=== PATIENT | male | born 1965 | race Caucasian/White ===

== ENCOUNTER → 2019-03-03 08:34 | Outpatient (BNVA) | payer SELFPAY | PROVIDERS: Family Provider Nurse Practitioner Family; PCP Nurse Practitioner Family; Visit Provider Orthopaedic Surgery | DX: Z96.612 Presence of left artificial shoulder joint (principal) | CPT/HCPCS: 73030 ==

== ENCOUNTER → 2021-01-16 08:25 | Outpatient (BNVA) | payer BC, SELFPAY | PROVIDERS: Family Provider Nurse Practitioner Family; PCP Nurse Practitioner Family; Visit Provider Orthopaedic Surgery | DX: M17.12 Unilateral primary osteoarthritis, left knee (principal); M11.262 Other chondrocalcinosis, left knee | CPT/HCPCS: 73560; 73565 ==

== ENCOUNTER → 2021-06-04 08:18 | Outpatient (BNVA) | payer BC, MEDICAID, SELFPAY | PROVIDERS: Family Provider Nurse Practitioner Family; PCP Nurse Practitioner Family; Visit Provider Orthopaedic Surgery | DX: M17.0 Bilateral primary osteoarthritis of knee (principal); Z87.891 Personal history of nicotine dependence | CPT/HCPCS: 20610; 99213; J0702; J3490 ==

== ENCOUNTER → 2021-09-11 08:23 | Outpatient (BNVA) | payer BC, MEDICAID, SELFPAY | PROVIDERS: Family Provider Nurse Practitioner Family; PCP Nurse Practitioner Family; Visit Provider Orthopaedic Surgery | DX: M25.561 Pain in right knee (principal); M17.0 Bilateral primary osteoarthritis of knee | CPT/HCPCS: 73560; 73565; 99213 ==

== ENCOUNTER → 2021-09-18 08:13 | Outpatient (BNVA) | payer BC, MEDICAID, SELFPAY | PROVIDERS: Family Provider Nurse Practitioner Family; PCP Nurse Practitioner Family; Visit Provider Orthopaedic Surgery | DX: M25.511 Pain in right shoulder (principal); M19.011 Primary osteoarthritis, right shoulder; M17.0 Bilateral primary osteoarthritis of knee | CPT/HCPCS: 20610; 73030; 99212; 99213; J0702; J3490 ==

== ENCOUNTER 2021-10-07 06:00 | Day surgery (SDC) | payer BC, MEDICAID, SELFPAY ==
[2021-10-07 14:28] VITALS: BMI 35.4
--- NOTE | 2021-10-07 15:48 | P.ANESASSM_ITS ---
Pre-Anesthetic Assessment Height/Weight: Height 1.73 m Weight 105.687 kg Operation Date: 10/21/21 07:00 Proposed Procedures p Right total knee arthroplasty: 79185,M17.0(Right) - Monroe Morfin MD Familial anesthetic complications: None Was Beta Alyssa taken within 24 hours: Yes Was Clonidine taken within 24 hours: N/A Social Tobacco (chews, h/o smoking) and No alcohol Exam alert, oriented x 3, clear to auscultation bilaterally and regular rate & rhythm Airway Submandibular: within normal limits Cervical ROM: within normal limits Mallampati: Class II Dentition: false Pulmonary Chronic Obstructive Pulmonary Disease CV/HEM Hypertension Metabolic Hyperlipidemia and Morbid Obesity [facility] [place] Osteoarthritis/DJD Anesthetic Plan ASA status: 3 Anesthesia: Regional (specify below) (SAB with adductor blk) Medications/Allergies Home Medications Medication Instructions Recorded Confirmed Last Taken Type amlodipine 5 mg tablet 5 mg PO ONCE 03/03/19 10/07/21 Unknown History aspirin 81 mg tablet,delayed 81 mg PO ONCE 03/03/19 10/07/21 Unknown History release (Adult Low Dose Aspirin) lisinopril 20 1 tab PO ONCE 03/03/19 10/07/21 Unknown History mg-hydrochlorothiazide 25 mg tablet lovastatin 10 mg tablet 10 mg PO ONCE 03/03/19 10/07/21 Unknown History meloxicam 15 mg tablet 15 mg PO ONCE 03/03/19 10/07/21 Unknown History metoprolol tartrate 100 mg tablet 100 mg PO BID 03/03/19 10/07/21 Unknown History cetirizine 10 mg tablet 10 mg PO DAILY 10/07/21 10/07/21 Unknown History escitalopram oxalate 5 mg tablet 1 mg 10/07/21 Unknown History Allergies Allergy/AdvReac Type Severity Reaction Status Date / Time No Known Allergies Allergy Verified 10/07/21 14:22 [facility] Anesthesia Family History Denies family history of Diabetes CAD (coronary artery disease) Clotting disorder Dementia Hyperlipidemia Psychiatric illness Chronic kidney disease (CKD) Suicide Anesthesia complication Bleeding disorder Family history of premature coronary artery disease Lung disease Cancer Hypertension Stroke Social History Smoking and tobacco status: former smoker Alcohol intake: never Data Anesthesia : 10/07/21 14:39 Cardiac Studies: No Data to Display
[2021-10-07 16:11] LABS: Anion Gap 13.3 (5-19); Blood Urea Nitrogen 14 mg/dL (6-20); Calcium 9.1 mg/dL (8.5-10.5); Carbon Dioxide 30 mmol/L (22-29); Chloride 102 mmol/L (98-107); Glomerular Filtration Rate 86.7 mL/min (90-130); Glucose 109 mg/dL (65-115); Osmolality Calculated 295 mOsm/kg (285-295); Potassium 3.3 mmol/L (3.5-5.1); Sodium 142 mmol/L (136-145)
== END 2021-10-07 23:00 | disposition home or self-care (01) ==
LOC: OR 12-23 12:30
PROVIDERS: PCP Nurse Practitioner Family; Visit Provider Orthopaedic Surgery
DX: Z01.818 Encounter for other preprocedural examination (principal)
CPT/HCPCS: 80048

== ENCOUNTER → 2021-10-16 12:51 | Outpatient (BNVA) | payer BC, MEDICAID, SELFPAY | PROVIDERS: PCP Nurse Practitioner Family; Visit Provider Orthopaedic Surgery | DX: M17.11 Unilateral primary osteoarthritis, right knee (principal) | CPT/HCPCS: 99213 ==

== ENCOUNTER 2021-11-12 06:00 | Outpatient (CLI) | payer BC, MEDICAID, SELFPAY | END 2021-11-12 06:01 | disposition home or self-care (01) | LOC: RT 11-21 11:39 | PROVIDERS: PCP Nurse Practitioner Family; Visit Provider Orthopaedic Surgery | DX: Z01.89 Encounter for other specified special examinations (principal) | CPT/HCPCS: 93005 ==

== ENCOUNTER 2021-11-25 12:14 | Observation (INO) | payer BC, MEDICAID, SELFPAY ==
--- NOTE | 2021-11-12 10:57 | ECG_ITS ---
[facility] Test Date: 2021-11-12 Pat Name: Mohinder Presley Department: Room: Gender: Male Crotch Piece Baster: : 1965 Requested By: Oscar Judd Order Number: [id number] Toni MD: Joyce Hill M.D. Measurements Intervals [place] Rate: 51 P: 37 ID: [id number] QRS: -21 QRSD: 107 T: 44 QT: 451 QTc: 418 Interpretive Statements SINUS BRADYCARDIA WITH FIRST DEGREE AV BLOCK BORDERLINE LEFT AXIS DEVIATION [QRS AXIS < -20] Compared to ECG 01/31/2019 10:52:22 First degree AV block now present Electronically Signed On 11-12-2021 20:47:25 CDT by Joyce Hill M.D. [id number]
[2021-11-12 11:03] LABS: Basophils # 0.1 10^3/uL (0.0-0.1); Basophils % 0.9 %; Eosinophils # 0.2 10^3/uL (0.0-0.8); Eosinophils % 4.1 %; Hematocrit 41.9 % (42.0-52.0); Hemoglobin 13.7 g/dL (11.7-16.6); Lymphocytes # 1.5 10^3/uL (0.8-4.8); Lymphocytes % 27.9 %; Mean Corpuscular HGB Conc 32.7 g/dL (30.0-36.0); Mean Corpuscular Hemoglobin 29.5 pg (28.0-34.0); Mean Corpuscular Volume 90.3 fl (80-94); Mean Platelet Volume 11.8 fL (7.4-10.4); Monocytes # 0.4 10^3/uL (0.2-0.9); Monocytes % 7.8 %; Neutrophils # 3.19 10^3/uL (1.8-7.7); Neutrophils % 58.9 %; Nucleated Red Blood Cells % 0 %; Platelet Count 196 10^3/cmm (130-400); Red Blood Count 4.64 10^6/uL (4.1-5.3); Red Cell Distribution Width 12.2 % (12.1-15.1); White Blood Count 5.4 10^3/uL (4.0-10.0)
[2021-11-12 11:25] LABS: Blood Urea Nitrogen 13 mg/dL (6-20); Calcium 9.4 mg/dL (8.5-10.5); Carbon Dioxide 31 mmol/L (22-29); Chloride 98 mmol/L (98-107); Glomerular Filtration Rate 86.7 mL/min (90-130); Glucose 104 mg/dL (65-115); Osmolality Calculated 286 mOsm/kg (285-295); Sodium 138 mmol/L (136-145)
--- NOTE | 2021-11-12 12:25 | ANES.PREANE2 ---
Pre-Anesthetic Assessment Height/Weight: Height 1.73 m Weight 104.78 kg Preop Diagnosis: OA right knee Operation Date: 11/25/21 12:55 Proposed Procedures p Right total knee arthroplasty:?68351,M17.0(Right) - Monroe Morfin MD Familial anesthetic complications: Hx of PONV Was Beta Alyssa taken within 24 hours: Yes Was Clonidine taken within 24 hours: N/A Social Tobacco (Chewing ) and No alcohol Exam alert, oriented x 3, clear to auscultation bilaterally and regular rate & rhythm Airway Submandibular: within normal limits Cervical ROM: within normal limits Mallampati: Class II Dentition: false History/ROS No significant complaints Pulmonary None reported Patient denies COPD CV/HEM Hypertension and Myocardial Infarction (Denies CAD, stents - remote hx of stress related LA per patient ) None reported Hepatic None reported GI None reported Metabolic Hyperlipidemia Musc/skel Osteoarthritis/DJD Neuropsych None reported Anesthetic Plan ASA status: 3 Anesthesia: Anesthesia Evaluation and Regional (specify below) (Spinal with adductor canal block for post op pain control ) Other: We discussed risk and benefits of general vs spinal anesthesia including DVT risk, infection, paralysis/catastrophic nerve injury, back bruising/pain, PDPH, conversion to general in case of spinal, PONV, sore throat (sometimes severe), corneal abrasion, positioning and peripheral nerve injuries, life threatening allergic reaction, post operative ICU admission requiring prolonged intubation, stroke, heart attack, , post operative delirium and/or post operative cognitive decline, and rare incidences of recall (under general anesthesia). We discussed risk and benefits of nerve block for post op pain control including management of pain and titration of pain medications as signs/symptoms of nerve block wearing off begin to appear and/or prior bed. We discussed risk of failed nerve block, vascular injury or other vital structure injury, abscess/infection, LAST, and nerve injury. Plan spinal with adductor canal block for post op pain control. Risk of > 500 ml blood loss (7ml/kg in children): No Medications/Allergies Home Medications Medication Instructions Recorded Confirmed Last Taken Type amlodipine 5 mg tablet 10 mg PO DAILY 03/03/19 11/12/21 Unknown History lisinopril 20 1 tab PO ONCE 03/03/19 11/12/21 Unknown History mg-hydrochlorothiazide 25 mg tablet meloxicam 15 mg tablet 15 mg PO ONCE 03/03/19 11/12/21 Unknown History metoprolol tartrate 100 mg tablet 100 mg PO BID 03/03/19 11/12/21 Unknown History cetirizine 10 mg tablet 10 mg PO DAILY 10/07/21 11/12/21 Unknown History escitalopram oxalate 5 mg tablet 1 mg PO DAILY 10/07/21 11/12/21 Unknown History diclofenac sodium 1 % topical gel 2 g topical QID 11/12/21 11/12/21 Unknown History rosuvastatin 20 mg tablet 20 mg PO DAILY 11/12/21 11/12/21 Unknown History Allergies Allergy/AdvReac Type Severity Reaction Status Date / Time No Known Allergies Allergy Verified 10/16/21 13:08 [facility] Anesthesia Medical History Psychiatric care Family History Denies family history of Diabetes CAD (coronary artery disease) Clotting disorder Dementia Hyperlipidemia Psychiatric illness Chronic kidney disease (CKD) Suicide Anesthesia complication Bleeding disorder Family history of premature coronary artery disease Lung disease Cancer Hypertension Stroke Social History Smoking and tobacco status: never smoked Alcohol intake: never Data Anesthesia : 11/12/21 10:55 11/12/21 10:55 Short CBC 11/12/21 Range/Units 10:55 WBC 5.4 (4.0-10.0) 10^3/uL Hgb 13.7 (11.7-16.6) g/dL Hct 41.9 L (42.0-52.0) % MCV 90.3 (80-94) fl Plt Count 196 (130-400) 10^3/cmm Neut % (Auto) 58.9 % Neut # (Auto) 3.19 (1.8-7.7) 10^3/uL BMP 11/12/21 10:55 Sodium 138 Potassium 4.0 Chloride 98 Carbon Dioxide 31 H BUN 13 Creatinine 0.9 Glucose 104 Calcium 9.4 Cardiac Studies: No Data to Display
[2021-11-25] VITALS (18 sets, daily range): BP systolic 104–143; BP diastolic 62–85; PULSE 47–60; RESP 14–18; TEMP 36.1–36.8; O2SAT 90–99
--- NOTE | 2021-11-25 07:29 | P.ANESUD_ITS ---
Pre-Anesthetic Update Pre-Anesthetic Assessment: Date of Surgery/Procedure: 11/25/21 Preop Monie gnosis: Osteoarthritis right knee Proposed Procedure: Operation Date: 11/25/21 09:35 Proposed Procedures p Right total knee arthroplasty:?20492,M17.0(Right) - Monroe Morfin MD Any changes to Pre-Anesthetic Assessment?: No Last Intake: 11/24/21 except sip of water today with meds Exam: Pre-Anes Outpt Exam: alert, oriented x 3, clear to auscultation bilaterally and regular rate & rhythm Cardiac Studies: No Data to Display
[2021-11-25] MEDS: scopolamine 1.5 Patch 1 PATCH TRANSDERMA (07:50)
[2021-11-25] MEDS: CELEcoxib 200 mg Capsule 400 MG PO (07:51)
[2021-11-25] MEDS: oxyCODONE 20 mg ER (12 HR) Tablet PO (07:51)
[2021-11-25] MEDS: gabapentin 300 mg Capsule PO ×2 (07:51→17:18)
[2021-11-25] MEDS: acetaminophen 500 mg Tablet 1000 MG PO ×2 (07:52→15:17)
[2021-11-25] MEDS: sodium chloride 0.9% 1,000 ML 30 ML IV (07:59)
--- NOTE | 2021-11-25 08:30 | ANES.PROC ---
Anesthesia Procedures Procedure/Date: 11/25/21 Nerve Block ^: Nerve Block 1: Main Anesthesia: spinal anesthesia block Time Out Performed: Yes Consent: requested by attending/covering physician, from patient, risks and benefits reviewed and patient agrees to proceed Nerve block location: adductor canal Anesthesia monitors applied: pulse oximetry, EKG, BP cuff and oxygen Nerve block position: semi sitting Anesthetic Used: ropivicaine 0.5% Amount of anesthesia used (mL): 20 Ultrasound used to: recognize landmarks, visualize and ID brachial plexus and visualize and ID femerol nerve Nerve Stimulator Used?: No Interscalene/Femoral BLK: 4 stimuplex 21 g needle used for position and inplane approach, visualize local anesthetic spread and no vascular puncture identified Injection: neg aspiration of heme Patient Tolerated Procedure: well Complications: none Additional Comments: After time out sterile prep, using sterile technique, and using real time US guidance for target selection needle was inserted with real time visualization of needle entry and real time visualization of needle advancement toward intended target. Negative aspiration. LA injected incrementally with negative aspiration every 5 cc and real time US visualization of LA spread throughout procedure. Tolerated well. Image(s) saved.
--- NOTE | 2021-11-25 09:39 | P.HP_ITS ---
Same Day Surgery H&P Indication for Procedure/HPI DATE OF PROCEDURE: November 25, 2021 CHIEF COMPLAINT/INDICATIONFOR SURGICAL PROCEDURE: Osteoarthritis right knee here for right total knee arthroplasty PREOP DIAGNOSIS: Osteoarthritis right knee PLANNED PROCEDURE: Operation Date: 11/25/21 09:35 Proposed Procedures p Right total knee arthroplasty:?16084,M17.0(Right) - Monroe Morfin MD 56 year old male patient known to me for osteoarthritis in both shoulders and both knees.? He underwent a left total shoulder arthroplasty in February of last year and did well.? He states that since that time he has been bothered by increasing pain in both knees particularly his right knee.? He states his right knee is steadily progressed and become more of a problem.? He states with any activity his pain will reach a 7/10 intensity.? He has been managed with meloxicam without help.? He states the cortisone injection gave him only 2 weeks of improvement.? He describes significant functional limitations.? He reports that he is unable to walk any more than perhaps a few 100 feet.? As an example he states he is unable to walk to the back of even a small grocery store and back.? He states he is unable to help around the home.? His is now forced to do all the cooking cleaning and yard work.? He states he has instability in his knee.? He describes pain way episodes every 3 to 4 days where he nearly will fall.? He relies on objects around him to catch himself up.? He describes several falls in the past year he attributes to his knees.? Unfortunately he has a Medicaid HMO and physical therapy is not a covered benefit.? Has significant functional limitations as outlined above and that should not of been an issue.? He tried multiple modalities including medications and injections without help. Medications/Allergies* Home Medications Medication Instructions Recorded Confirmed Type amlodipine 5 mg tablet 10 mg PO DAILY 03/03/19 11/25/21 History lisinopril 20 1 tab PO ONCE 03/03/19 11/25/21 History mg-hydrochlorothiazide 25 mg tablet metoprolol tartrate 100 mg tablet 100 mg PO BID 03/03/19 11/25/21 History cetirizine 10 mg tablet (Zyrtec) 10 mg PO DAILY 10/07/21 11/25/21 History diclofenac sodium 1 % topical gel 2 g topical QID 11/12/21 11/25/21 History rosuvastatin 20 mg tablet 20 mg PO DAILY 11/12/21 11/25/21 History meloxicam 15 mg tablet 15 mg PO DAILY 11/18/21 11/25/21 History escitalopram oxalate 20 mg tablet 20 mg PO DAILY 11/25/21 11/25/21 History (Lexapro) Allergies/Adverse Reactions Allergy/AdvReac Type Severity Reaction Status Date / Time No Known Allergies Allergy Verified 11/25/21 07:33 Current Medications: Generic Name Dose Route Start Last Admin Trade Name Stephanie PRN Reason Stop Dose Admin Sodium Chloride 1,000 mls @ 30 mls/hr 11/25/21 07:30 11/25/21 07:59 Sodium Chloride 0.9% IV 11/26/21 07:29 30 mls/hr .Q24H TAMIKO Administration Pertinent History/Comorbid Conditions* Medical History (Updated 11/18/21 @ 11:08 by Nancy Espinal MD) TERESA (generalized anxiety disorder) MDD (major depressive disorder) Psychiatric care Family History (Updated 03/31/19 @ 08:08 by Marsha Pinzon LPN) Denies family history of Diabetes CAD (coronary artery disease) Clotting disorder Dementia Hyperlipidemia Psychiatric illness Chronic kidney disease (CKD) Suicide Anesthesia complication Bleeding disorder Family history of premature coronary artery disease Lung disease Cancer Hypertension Stroke Social History Smoking and tobacco status: never smoked Alcohol intake: never Pertinent Exam Findings alert, oriented x 3, clear to auscultation bilaterally, regular rate & rhythm, operative site marked and procedure specific exam findings Moderate effusion right knee. Motion 10 to 110 degrees. Tenderness medial joint line Recommendations Surgery/Procedure today Coding Level of Care Code Acute [facility] for Dulce Shaver
[2021-11-25] MEDS: ceFAZolin 2,000 MG in sodium chloride 0.9% (plus) 50 ML 100 MG IV ×2 (09:53→17:17)
[2021-11-25] MEDS: tranexamic acid 1,000 mg/10mL SDV 1000 MG IV (10:20)
[2021-11-25] MEDS: ketorolac 30 mg/mL INJ XX (10:38)
[2021-11-25] MEDS: tranexamic acid 1,000 mg/10mL SDV 1000 MG XX (10:38)
[2021-11-25] MEDS: EPINEPHrine 1 mg/mL INJ XX (10:38)
[2021-11-25] MEDS: sodium chloride 0.9% 100 mL Bag XX (10:42)
--- NOTE | 2021-11-25 11:38 | PM.OP ---
Operative Report Date of procedure: November 25, 2021 Pre-op diagnosis: Preop Diagnosis Osteoarthritis right knee Post-op diagnosis: same Post-op diagnosis: Same Post-op findings: Same Procedure done: Right total knee arthroplasty Implants: Handy Triathalon total knee arthroplasty components were used includin) Size 5 triathalon cruciate retaining femoral component 2) Size 5 Tritanium tibial component 3) Size 5/11 mm thickness CS tibial bearing insert Pathology: none sent Surgeon: Monroe Morfin Anesthesia: Nerve Block (Spinal, adductor canal block) Estimated blood loss (mL): 100 Findings: The patient had eburnated bone over his medial femoral condyle and medial tibial plateau Condition: stable Disposition: PACU Brief History: Mr. Presley is a 56-year-old male with end-stage osteoarthritis of both knees more symptomatic on the right than the left. He has failed conservative measures including medications and injections. He has significant functional limitations and total knee arthroplasty is chosen to improve pain and function Procedure: The patient was taken to the operating room. Patient was given 1 g of tranexamic acid . The above anesthesia provided by the anesthesia service. A timeout was performed. The patient was prepped and draped in the usual fashion with the lower extremity exposed. A anterior incision was made, midline, from a point proximal to the patella to the distal tibial tubercle. The knee was entered through a medial parapatellar approach. The patella could be displaced laterally and the knee flexed. The patellar fat pad was resected to provide better visibility. Retractors were placed medially and laterally adjacent to the tibial plateau. The femoral canal was drilled in line with the longitudinal axis of the femur. Intramedullary femoral guide for used to make a distal femoral cut in 5 degrees of valgus, resecting 8 mm from the more prominent condyle. Next the extra medullary tibial guide was placed in alignment with the longitudinal axis of the tibia. The cutting guides were set to remove just over 9 mm from the high tibial plateau. The proximal tibia was then cut. The femoral measuring guide was then placed over the distal femur. Rotation was verified checking the relationship of the guide to the condyle and the trochlear groove. The femur was measured and cut for the desired femoral component. The desired tibial baseplate was then chosen. A trial reduction with the femur tibial baseplate and polyethylene was done, assuring that the knee was stable throughout full motion. Ligament balancing involved nothing more than a release of the deep medial collateral ligament.The tibia was prepared for the tibial baseplate. Surfaces were cleaned with a gentamicin solution. The femur and tibia were then press-fit into place. The posterior capsule and collateral ligaments were then injected with a solution of 100 mL of 0.2% ropivacaine, 1 mL of a 1:1000 epinephrine solution, 30 mg of Toradol, and 1 g of tranexamic acid. Final polyethylene component was then snapped into place into the tibia. The extensor retinaculum was closed with a running 1 Stratafix interrupted 1 Ethibond. The subcutaneous tissues were closed with 2-0 Vicryl and the skin was closed with a running 4-0 Stratafix. The wound was covered with a Dermabond Prineo dressing. It was covered with 4xrs and a compressive Tubigauze was applied. The patient was taken to recovery room in stable condition.
--- NOTE | 2021-11-25 11:45 | XR_ITS ---
WS: [id number] XR knee RT 1-2V 84123 REASON FOR EXAM: Right Total Knee arthroplasty FINDINGS: RIGHT KNEE: Moderately severe narrowing of the medial knee joint space with subchondral sclerosis and marginal os teophytosis. Mild medial shift of the femur. Mild narrowing of the lateral knee joint space with mild subchondral sclerosis and marginal osteophyt osis. Calcification overlying the medial and lateral knee joint spaces space presumably within the me nisci. Mild narrowing of the lateral aspect of the patellofemoral joint. Subchondral sclerosis and medial ma rgin osteophytosis of the patella. Significant osteophytosis of the medial and lateral femoral condyl es. LEFT KNEE: Moderately severe narrowing of the medial knee joint space with subchondral sclerosis and marginal os teophytosis. Mild medial shift of the femur. Mild narrowing of the lateral knee joint space with mild subchondral sclerosis and moderate marginal osteophytosis. Calcification overlying the medial and lateral knee joint spaces presumably within the menisci. Mild narrowing of the patellofemoral joint space with subchondral sclerosis and medial marginal osteo phytosis of the patella. Significant osteophytosis of the medial and lateral femoral condyles. XR/XR knee RT 1-2V [id number] IMPRESSION: Bilaterally there is significant osteoarthritis of both knees as above. Calcification in the menisci suggest CPPD.
--- NOTE | 2021-11-25 13:49 | ANE.PACU2 ---
Inpatient post-anesthesia follow up: Airway intact: Yes Vital signs: Temperature 97.8 F Pulse Rate 52 Respiratory Rate 16 Blood Pressure 121/74 Pulse Oximetry 94 Oxygen Delivery Me thod Room Air Oxygen Flow Rate Fraction of Inspir ed Oxygen Hydration adequate: Yes Nausea and vomiting: No Pain level: 1 Mental status: Baseline
[2021-11-25] MEDS: sodium chloride 0.9% 1,000 ML 100 ML IV (15:14)
[2021-11-25] MEDS: CELEcoxib 200 mg Capsule PO (21:05)
[2021-11-26] MEDS: acetaminophen 500 mg Tablet 1000 MG PO ×2 (00:53→08:37)
[2021-11-26] MEDS: sodium chloride 0.9% 1,000 ML 100 ML IV (00:54)
[2021-11-26] MEDS: ceFAZolin 2,000 MG in sodium chloride 0.9% (plus) 50 ML 100 MG IV ×2 (00:57→10:36)
[2021-11-26 03:05] LABS: Hemoglobin 11.8 g/dL (11.7-16.6)
[2021-11-26 04:00] VITALS: BP 147/72; PULSE 51; RESP 17; TEMP 36.6; O2SAT 97
[2021-11-26 07:53] VITALS: BP 145/89; PULSE 56; RESP 18; TEMP 36.7; O2SAT 99
--- NOTE | 2021-11-26 08:10 | PM.DCS ---
Discharge Providers Date of Admission: 11/25/21 12:14 Date of Discharge: November 26, 2021 Attending Provider at Admission: Monroe Morfin MD Attending Provider at Discharge: Monroe Morfin MD Primary Care Provider: BLANCO Ojeda Diagnoses at Discharge Discharge Diagnosis (1) Status post right knee replacement: Status: Acute (2) TERESA (generalized anxiety disorder): Status: Acute (3) MDD (major depressive disorder): Status: Acute Reason for Visit Reason for Visit: unilateral primary osteoarthritis, right knee Hospital Course Hospital Course The patient tolerated surgery well. They remained hemodynamically stable. They was begun on aspirin and foot for DVT prophylaxis. The patient was mobilized with therapy beginning the day of surgery and by the first postoperative day independent with the walker. As the pain was adequately controlled and they were fully mobile they were discharged home. Physical Exam Narrative: On the day of discharge the knee incision was clean. They had no drainage. There is minimal swelling in the thigh and knee and the calf. No distal neurovascular deficits were noted Discharge Data Studies Completed and Pending Completed Studies During Hospitalization Category Date Time Status XR knee RT 1-2V [id number] Routine Exams 11/25/21 11:45 Completed Radiology Impressions Knee X-Ray 11/25/21 11:45 IMPRESSION: Bilaterally there is significant osteoarthritis of both knees as above. Calcification in the menisci suggest CPPD. ADDENDUM: 11/25/21 1501 IMPRESSION: Status post total right knee arthroplasty with no significant abnormality. Laboratory Results WBC 5.4 10^3/uL (4.0-10.0) 11/12/21 10:55 RBC 4.64 10^6/uL (4.1-5.3) 11/12/21 10:55 Hgb 11.8 g/dL (11.7-16.6) 11/26/21 02:30 Hct 41.9 % (42.0-52.0) L 11/12/21 10:55 MCV 90.3 fl (80-94) 11/12/21 10:55 MCH 29.5 pg (28.0-34.0) 11/12/21 10:55 MCHC 32.7 g/dL (30.0-36.0) 11/12/21 10:55 RDW 12.2 % (12.1-15.1) 11/12/21 10:55 Plt Count 196 10^3/cmm (130-400) 11/12/21 10:55 MPV 11.8 fL (7.4-10.4) H 11/12/21 10:55 Neut % (Auto) 58.9 % 11/12/21 10:55 Lymph % (Auto) 27.9 % 11/12/21 10:55 [place] % (Auto) 7.8 % 11/12/21 10:55 Eos % (Auto) 4.1 % 11/12/21 10:55 Baso % (Auto) 0.9 % 11/12/21 10:55 Neut # (Auto) 3.19 10^3/uL (1.8-7.7) 11/12/21 10:55 Lymph # (Auto) 1.5 10^3/uL (0.8-4.8) 11/12/21 10:55 [place] # (Auto) 0.4 10^3/uL (0.2-0.9) 11/12/21 10:55 Eos # (Auto) 0.2 10^3/uL (0.0-0.8) 11/12/21 10:55 Baso # (Auto) 0.1 10^3/uL (0.0-0.1) 11/12/21 10:55 Nucleated RBC % (auto) 0 % 11/12/21 10:55 Nucleated RBCs # 0.0 /100WBC 11/12/21 10:55 Sodium 138 mmol/L (136-145) 11/12/21 10:55 Potassium 4.0 mmol/L (3.5-5.1) 11/12/21 10:55 Chloride 98 mmol/L (98-107) 11/12/21 10:55 Carbon Dioxide 31 mmol/L (22-29) H 11/12/21 10:55 Anion Gap 13.0 (5-19) 11/12/21 10:55 BUN 13 mg/dL (6-20) 11/12/21 10:55 Creatinine 0.9 mg/dL (0.7-1.2) 11/12/21 10:55 GFR Calculation 86.7 mL/min (90-130) L 11/12/21 10:55 Glucose 104 mg/dL (65-115) 11/12/21 10:55 Calculated Osmolality 286 mOsm/kg (285-295) 11/12/21 10:55 Calcium 9.4 mg/dL (8.5-10.5) 11/12/21 10:55 Vitals Last Vital Signs Temp 98.0 F 11/26/21 07:53 Pulse 56 L 11/26/21 07:53 Resp 18 11/26/21 07:53 BP 145/89 11/26/21 07:53 Pulse Ox 99 11/26/21 07:53 O2 Del Method 11/26/21 07:53 O2 Flow Rate 3 11/25/21 20:24 Discharge Plan Discharge Patient Disposition: Home Condition: Stable Prescriptions: New oxycodone 5 mg Tablet 5 mg PO Q4H PRN (Reason: Moderate Pain) 7 Days Qty: 40 0RF acetaminophen 500 mg Tablet 1,000 mg PO Q8H 14 Days Qty: 84 0RF aspirin 325 mg Tablet,Delayed Release (Dr/Ec) 325 mg PO DAILY 30 Days Qty: 30 0RF celecoxib 200 mg Capsule 200 mg PO Q12H 14 Days Qty: 28 0RF gabapentin 300 mg Capsule 300 mg PO BID 7 Days Qty: 14 0RF Continued metoprolol tartrate 100 mg tablet 100 mg PO BID lisinopril-hydrochlorothiazide 20-25 mg tablet 1 tab PO ONCE amlodipine 5 mg tablet 10 mg PO DAILY meloxicam 15 mg tablet 15 mg PO DAILY cetirizine [Zyrtec] 10 mg Tablet 10 mg PO DAILY rosuvastatin 20 mg tablet 20 mg PO DAILY diclofenac sodium 1 % gel 2 g TOPICAL QID Lexapro 20 mg tablet 20 mg PO DAILY Discharge Orders: Discharge Order (Routine); Ordered 11/26/21 Ordered By: Monroe Morfin Other Ambulatory Orders: DME: [facility] (Order) Location: None Selected Ordered By: Monroe Morfin Referrals: Monroe Morfin MD [Physician] - 11/29/21 11:15 am Discharge Diet: Advance as tolerated Discharge Activity: Limit activity as instructed Patient Instructions: Opioid Safety Activity Restrictions/Additional Instructions: Okay to shower Keep Tubigauze sleeve in place for swelling. Okay to remove for hygiene. Apply FirstIce up to 20 min/hr for pain and swelling Take Celebrex twice a day for the next 15 days for pain , discontinue other anti-inflammatories Take Neurontin twice a day for 7 days. Take Tylenol 500mg (2 tabs) as needed 3 times a day for mild pain take oxycodone for breakthrough pain. Exercises per physical therapy. May weight-bear as tolerated on total knee arthroplasty IF HAVE ANY PROBLEMS OR QUESTIONS CALL [facility] AT AND ASK TO HAVE DR. JALEESA ALCANTAR. Discharge Attestations Time Spent in Discharge Care*: other Quality Metrics Clinical Quality Measures [ No reported AMI, CVA or VTE this stay] Coding Level of Care Code Acute [facility] note Diagnoses Status post right knee replacement Z96.651 TERESA (generalized anxiety disorder) F41.1 MDD (major depressive disorder) F32.9
[2021-11-26] MEDS: escitalopram 10 mg Tablet 20 MG PO (08:36)
[2021-11-26] MEDS: cetirizine 10 mg Tablet PO (08:36)
[2021-11-26] MEDS: gabapentin 300 mg Capsule PO (08:36)
[2021-11-26] MEDS: aspirin 325 mg EC Tablet PO (08:37)
[2021-11-26] MEDS: atorvastatin 40 mg Tablet 80 MG PO (08:37)
[2021-11-26] MEDS: hydroCHLOROthiazide 25 mg Tablet PO (08:37)
[2021-11-26] MEDS: amlodipine 5 mg Tablet 10 MG PO (08:38)
[2021-11-26] MEDS: lisinopril 20 mg Tablet PO (08:38)
[2021-11-26] MEDS: CELEcoxib 200 mg Capsule PO (08:38)
[2021-11-26 10:51] VITALS: BP 152/87; PULSE 80; RESP 18; TEMP 37.7; O2SAT 94
--- NOTE | 2021-11-26 11:09 | PC.CHAP ---
Pastoral Care Encounter/Spiritual Assessment Type of Contact [] Declined media monitor visit [] Patient/Family/Request visit [] Outpatient visit [] Follow-up visit [] Physician referral [] Code/Alert [x] Routine visit [] Staff referral [] Actively dying [] Patient sleeping [] Family support [] [] Out of room [] Palliative care [] [] Receiving care in room [] Pre-surgical visit [] Trauma [] Long length of stay [] ICU visit [] Other: Relational/Emotional Strength [x] Patient feels connected with others/family/visitors/staff [] Distress [] Loneliness/isolation [] Abandonment Spirituality of Patient [x] Person of Quin [] Attends Mosque of their Quin [x [] There are Spiritual issues to be addressed Hspt Tutor Interventions [x] Prayer [x] Active listening [] Non-anxious presence [x] Spiritual/emotional support [] Crisis/trauma care [] Spiritual counseling [] Bereavement support [] Provided bereavement packet [] Provided Bible/devotional materials [] Provided toy/stuffed animal, coloring book to patient or family member [] Provided Communion [] Anointing/[place] [] Salvation [x] Completed spiritual assessment [] Other: Impact on Illness or Injury [] Angry [] Fearful [] Anxious [] Often cries [] Exhaustion [] Unable to work [] Unable to attend mandaen [] Unable to walk/stand [] Unable to read [] Unable to drive [] Unable to eat/drink [] Unable to sleep [] Unable to be with family [] Patient intubated [] Other: Summary Time spent with patient 10 min
--- NOTE | 2021-11-26 13:47 | PC.NURSE ---
Went over discharge, new medications and follow up appointments with patient and spouse. Verbalized understanding.
[2021-11-26 14:55] VITALS: BP 152/87; PULSE 80; RESP 18; TEMP 37.7; O2SAT 94
== END 2021-11-26 13:45 | disposition home or self-care (01) ==
PROVIDERS: Anesthesiology; Admitting Provider Orthopaedic Surgery; PCP Nurse Practitioner Family; Visit Provider Orthopaedic Surgery
PROC: (CPT 27447; principal; 2021-11-25 09:15)
DX: M17.11 Unilateral primary osteoarthritis, right knee (principal); F41.1 Generalized anxiety disorder; F32.9 Major depressive disorder, single episode, unspecified
CPT/HCPCS: 27447; 36415; 73560; 80048; 85018; 85025; 97110; 97116; 97161; 97165; C1776; G0378; J0171; J1580; J1885; J2250; J2370; J2704; J2795; J7030

== ENCOUNTER → 2021-12-20 11:01 | Outpatient (BNVA) | payer BC, MEDICAID, SELFPAY | PROVIDERS: PCP Nurse Practitioner Family; Visit Provider Nurse Practitioner Family | DX: Z96.651 Presence of right artificial knee joint (principal) | CPT/HCPCS: 73560; 73565 ==

== ENCOUNTER 2022-02-05 20:00 | Outpatient (CLI) | payer BC, SELFPAY | END 2022-02-05 20:01 | disposition home or self-care (01) | LOC: SLEEP 02-06 06:43 | PROVIDERS: PCP Nurse Practitioner Family; Visit Provider Nurse Practitioner Family | DX: R06.83 Snoring (principal); R53.83 Other fatigue; G47.33 Obstructive sleep apnea (adult) (pediatric) | CPT/HCPCS: 95810 ==

== ENCOUNTER → 2022-03-20 08:51 | Outpatient (BNVA) | payer BC, MEDICAID, SELFPAY | PROVIDERS: PCP Nurse Practitioner Family; Visit Provider Nurse Practitioner Family | DX: M17.12 Unilateral primary osteoarthritis, left knee (principal); Z96.651 Presence of right artificial knee joint | CPT/HCPCS: 73560; 73565 ==

== ENCOUNTER 2022-04-11 05:59 | Outpatient (CLI) | payer BC, MEDICAID, SELFPAY | END 2022-04-11 06:00 | disposition home or self-care (01) | LOC: RT 04-16 06:00 | PROVIDERS: PCP Nurse Practitioner Family; Visit Provider Orthopaedic Surgery | DX: Z13.6 Encounter for screening for cardiovascular disorders (principal); R00.1 Bradycardia, unspecified; I44.0 Atrioventricular block, first degree | CPT/HCPCS: 93005 ==

== ENCOUNTER 2022-04-11 06:55 | Outpatient (CLI) | payer BC, MEDICAID, SELFPAY ==
--- NOTE | 2022-04-11 07:00 | CT_ITS ---
WS: [id number] CT LEFT KNEE, NONCONTRAST TECHNIQUE: Noncontrast CT of the LEFT knee to include the LEFT hip and ankle. JHONNY CLINICAL INFORMATION: pre op planning COMPARISON: None. DLP: 963.[address] scans at [facility] use at least one of these dose optimization techniques: automated e xposure control; mA and/or kV adjustment per patient size (includes targeted exams where dose is matc hed to clinical indication); or iterative reconstruction. FINDINGS: Advanced degenerative arthritis LEFT knee with [id number] articulation medial joint compartment. Sm all joint effusion. Hypertrophic patella. Hypertrophic changes along the joint line. Mild degenerative joint space narrowing both hips. A few sigmoid diverticuli. CT/CT knee LT [facility] IMPRESSION: Images obtained for preoperative purposes.
== END 2022-04-11 06:56 | disposition home or self-care (01) ==
LOC: RAD 06:57
PROVIDERS: PCP Nurse Practitioner Family; Visit Provider Nurse Practitioner Family
DX: Z01.818 Encounter for other preprocedural examination (principal)
CPT/HCPCS: 73700

== ENCOUNTER 2022-04-21 14:53 | Observation (INO) | payer BC, MEDICAID, SELFPAY ==
[2022-04-11 07:49] VITALS: BMI 36.6
--- NOTE | 2022-04-11 08:00 | ECG_ITS ---
[facility] Test Date: 2022-04-11 Pat Name: Mohinder Presley Department: Room: Gender: Male Clinical Nurse Leader: : [id number] Requested By: Taiwo Alejandro Order Number: [id number] Toni MD: Tanya Khoury M.D. Measurements Intervals [place] Rate: 49 P: 52 NJ: 214 QRS: 16 QRSD: 98 T: 59 QT: 458 QTc: 414 Interpretive Statements SINUS BRADYCARDIA WITH FIRST DEGREE AV BLOCK Compared to ECG 11/12/2021 10:57:31 No significant changes Electronically Signed On 04-11-2022 17:04:31 WINDOWS APPLICATION PACKAGER by Tanya Khoury M.D. [id number]
[2022-04-11 08:40] LABS: Basophils # 0.1 10^3/uL (0.0-0.1); Basophils % 1.1 %; Eosinophils # 0.2 10^3/uL (0.0-0.8); Hematocrit 41.9 % (42.0-52.0); Hemoglobin 13.6 g/dL (11.7-16.6); Lymphocytes # 1.5 10^3/uL (0.8-4.8); Lymphocytes % 31.3 %; Mean Corpuscular HGB Conc 32.5 g/dL (30.0-36.0); Mean Corpuscular Hemoglobin 28.8 pg (28.0-34.0); Mean Corpuscular Volume 88.6 fl (80-94); Mean Platelet Volume 11.6 fL (7.4-10.4); Monocytes # 0.5 10^3/uL (0.2-0.9); Monocytes % 9.7 %; Neutrophils # 2.45 10^3/uL (1.8-7.7); Neutrophils % 52.7 %; Nucleated Red Blood Cells % 0 %; Platelet Count 194 10^3/cmm (130-400); Red Blood Count 4.73 10^6/uL (4.1-5.3); Red Cell Distribution Width 12.8 % (12.1-15.1); White Blood Count 4.6 10^3/uL (4.0-10.0)
--- NOTE | 2022-04-11 08:57 | ANES.PREANE2 ---
Pre-Anesthetic Assessment Height/Weight: Height 1.73 m Weight 109.316 kg Preop Diagnosis: Osteoarthritis right knee Operation Date: 04/21/22 10:00 Proposed Procedures p left total knee makoplasty/ 97181, M17.12(Left) - Monroe Morfin MD Familial anesthetic complications: PONV Was Beta Alyssa taken within 24 hours: Yes Was Clonidine taken within 24 hours: N/A Social Tobacco (Chews) and No alcohol Exam alert, oriented x 3 and clear to auscultation bilaterally Joe Airway Submandibular: within normal limits Cervical ROM: within normal limits Mallampati: Class II Dentition: false CV/HEM Arrythmia (Sinus joe (beta alyssa), first deg blk), Coronary Artery Disease, Hypertension and Myocardial Infarction Metabolic Hyperlipidemia [facility] [place] Osteoarthritis/DJD Neuropsych Anxiety and Depression Anesthetic Plan ASA status: 3 Anesthesia: Regional (specify below) (SAB with adductor blk) Medications/Allergies Home Medications Medication Instructions Recorded Confirmed Last Taken Type amlodipine 5 mg tablet 10 mg PO DAILY 03/03/19 04/11/22 04/11/22 History lisinopril 20 1 tab PO ONCE 03/03/19 04/11/22 04/11/22 History mg-hydrochlorothiazide 25 mg tablet metoprolol tartrate 100 mg tablet 100 mg PO BID 03/03/19 04/11/22 04/11/22 History cetirizine 10 mg tablet (Zyrtec) 10 mg PO DAILY 10/07/21 04/11/22 04/11/22 History diclofenac sodium 1 % topical gel 2 g topical QID 11/12/21 04/11/22 04/11/22 History rosuvastatin 20 mg tablet 20 mg PO DAILY 11/12/21 04/11/22 04/11/22 History meloxicam 15 mg tablet 15 mg PO DAILY 11/18/21 04/11/22 04/11/22 History escitalopram oxalate 20 mg tablet 20 mg PO DAILY 30 days #30 tabs 02/10/22 04/11/22 04/11/22 Rx (Lexapro) isosorbide mononitrate 10 mg tablet 10 mg PO DAILY 02/10/22 04/11/22 04/11/22 History famotidine 20 mg tablet 20 mg PO DAILY 04/11/22 04/11/22 04/11/22 History Allergies Allergy/AdvReac Type Severity Reaction Status Date / Time No Known Allergies Allergy Verified 03/20/22 08:57 [facility] Anesthesia Medical History TERESA (generalized anxiety disorder) MDD (major depressive disorder) Primary osteoarthritis, left shoulder left total shoulder arthroplasty DOS: 02/07/[address] Morfin Psychiatric care Surgical History Status post reverse total arthroplasty of left shoulder Family History Denies family history of Diabetes CAD (coronary artery disease) Clotting disorder Dementia Hyperlipidemia Psychiatric illness Chronic kidney disease (CKD) Suicide Anesthesia complication Bleeding disorder Family history of premature coronary artery disease Lung disease Cancer Hypertension Stroke Social History Smoking and tobacco status: never smoked Alcohol intake: never Data Anesthesia 04/11/22 08:00 04/11/22 08:00 Short CBC 04/11/22 Range/Units 08:00 WBC 4.6 (4.0-10.0) 10^3/uL Hgb 13.6 (11.7-16.6) g/dL Hct 41.9 L (42.0-52.0) % MCV 88.6 (80-94) fl Plt Count 194 (130-400) 10^3/cmm Neut % (Auto) 52.7 % Neut # (Auto) 2.45 (1.8-7.7) 10^3/uL Cardiac Studies: No Data to Display
[2022-04-11 08:58] LABS: Anion Gap 8.7 (5-19); Blood Urea Nitrogen 14 mg/dL (6-20); Calcium 9.4 mg/dL (8.5-10.5); Carbon Dioxide 31 mmol/L (22-29); Chloride 103 mmol/L (98-107); Glomerular Filtration Rate 99.3 mL/min (90-130); Glucose 93 mg/dL (65-115); Osmolality Calculated 288 mOsm/kg (285-295); Potassium 3.7 mmol/L (3.5-5.1); Sodium 139 mmol/L (136-145)
[2022-04-21] VITALS (12 sets, daily range): BP systolic 100–137; BP diastolic 61–80; PULSE 54–87; RESP 16–20; TEMP 36.5–37.1; O2SAT 92–98
--- NOTE | 2022-04-21 11:39 | W.PM.OPSFHP ---
Same Day Surgery H&P Indication for Procedure/HPI DATE OF PROCEDURE: April 21, 2022 CHIEF COMPLAINT/INDICATIONFOR SURGICAL PROCEDURE: Osteoarthritis left knee here for left total knee arthroplasty PREOP DIAGNOSIS: Osteoarthritis right knee PLANNED PROCEDURE: Operation Date: 04/21/22 13:05 Proposed Procedures p left total knee makoplasty/ 03982, M17.12(Left) - Monroe Morfin MD 56 year old male patient known after a elective right total knee arthroplasty. DOS:11/25/[address] Morfin. Patient states 0/10 pain in clinic today. He is doing well without. He states he is ready to discuss having his left knee replaced.? As he is having pain it is giving out on him even causing him to fall couple times stiffness after setting and then obviously pain he had such good results with the right knee he like to discuss getting the left knee done as well Medications/Allergies* Home Medications Medication Instructions Recorded Confirmed Type amlodipine 5 mg tablet 10 mg PO DAILY 03/03/19 04/21/22 History lisinopril 20 1 tab PO ONCE 03/03/19 04/21/22 History mg-hydrochlorothiazide 25 mg tablet metoprolol tartrate 100 mg tablet 100 mg PO BID 03/03/19 04/21/22 History cetirizine 10 mg tablet (Zyrtec) 10 mg PO DAILY 10/07/21 04/21/22 History diclofenac sodium 1 % topical gel 2 g topical QID 11/12/21 04/21/22 History rosuvastatin 20 mg tablet 20 mg PO DAILY 11/12/21 04/21/22 History meloxicam 15 mg tablet 15 mg PO DAILY 11/18/21 04/21/22 History famotidine 20 mg tablet 20 mg PO DAILY 04/11/22 04/21/22 History isosorbide mononitrate 30 mg 30 mg PO DAILY 04/14/22 04/21/22 History tablet,extended release 24 hr Allergies/Adverse Reactions Allergy/AdvReac Type Severity Reaction Status Date / Time No Known Allergies Allergy Verified 04/21/22 11:21 Pertinent History/Comorbid Conditions* Medical History (Updated 11/27/21 @ 00:01 by CECE Guzman) TERESA (generalized anxiety disorder) MDD (major depressive disorder) Primary osteoarthritis, left shoulder left total shoulder arthroplasty DOS: 02/07/[address] Morfin Psychiatric care Surgical History (Updated 11/26/21 @ 08:11 by Monroe Morfin MD) Status post reverse total arthroplasty of left shoulder Family History (Updated 03/31/19 @ 08:08 by Marsha Pinzon LPN) Denies family history of Diabetes CAD (coronary artery disease) Clotting disorder Dementia Hyperlipidemia Psychiatric illness Chronic kidney disease (CKD) Suicide Anesthesia complication Bleeding disorder Family history of premature coronary artery disease Lung disease Cancer Hypertension Stroke Social History Smoking and tobacco status: never smoked Alcohol intake: never Pertinent Exam Findings alert, oriented x 3, clear to auscultation bilaterally, regular rate & rhythm, operative site marked and procedure specific exam findings Tender left medial joint line Motion just short of full extension to 110 degrees Palpable left dorsalis pedis pulse Maame extends left toes and ankle without any motor deficits Recommendations Surgery/Procedure today Coding Level of Care Code Acute Code for Dulce Fwjay
[2022-04-21] MEDS: sodium chloride 0.9% 1,000 ML 30 ML IV (11:44)
--- NOTE | 2022-04-21 11:58 | P.ANESUD_ITS ---
Pre-Anesthetic Update Pre-Anesthetic Assessment: Date of Surgery/Procedure: 04/21/22 Preop Monie gnosis: Osteoarthritis left knee Proposed Procedure: Operation Date: 04/21/22 13:05 Proposed Procedures p left total knee makoplasty/ 33785, M17.12(Left) - Monroe Morfin MD Any changes to Pre-Anesthetic Assessment?: No Last Intake: Intake Last Liquid Date 04/20/22 Last Liquid Time 22:00 Last Solid Date 04/20/22 Last Solid Time 21:00 Vitals: Temperature 98.3 F 04/21/22 11:24 Temperature Source Temporal Artery S can 04/21/22 11:24 Pulse Rate 54 L 04/21/22 11:24 Respiratory Rate 18 04/21/22 11:24 Blood Pressure 126/80 04/21/22 11:24 Blood Pressure Renee n 95 04/21/22 11:24 Pulse Oximetry 94 04/21/22 11:24 Oxygen Delivery Me thod 04/21/22 11:24 Exam: Pre-Anes Outpt Exam: alert, oriented x 3, clear to auscultation bilaterally and regular rate & rhythm Cardiac Studies: No Data to Display
[2022-04-21] MEDS: CELEcoxib 200 mg Capsule 400 MG PO (11:59)
[2022-04-21] MEDS: acetaminophen 500 mg Tablet 1000 MG PO ×2 (11:59→19:45)
[2022-04-21] MEDS: oxyCODONE 20 mg ER (12 HR) Tablet PO (12:00)
[2022-04-21] MEDS: gabapentin 300 mg Capsule PO ×2 (12:01→17:23)
[2022-04-21] MEDS: ceFAZolin 2,000 MG in sodium chloride 0.9% (plus) 50 ML 100 MG IV ×2 (12:19→19:45)
[2022-04-21] MEDS: tranexamic acid 1,000 mg/10mL SDV 1000 MG IV (12:35)
[2022-04-21] MEDS: ketorolac 30 mg/mL INJ XX (13:10)
[2022-04-21] MEDS: EPINEPHrine 1 mg/mL INJ XX (13:10)
[2022-04-21] MEDS: tranexamic acid 1,000 mg/10mL SDV 1000 MG XX (13:10)
[2022-04-21] MEDS: sodium chloride 0.9% 100 mL Bag XX (13:13)
--- NOTE | 2022-04-21 14:20 | PM.OP ---
Operative Report Date of procedure: April 21, 2022 Pre-op diagnosis: Preop Diagnosis Osteoarthritis left knee Post-op diagnosis: same Post-op diagnosis: Same Post-op findings: Same Procedure done: Left total knee arthroplasty Implants: Handy Triathalon total knee arthroplasty components were used includin) Size 6 triathalon cruciate retaining femoral component 2) Size 6 Tritanium tibial component 3) Size 6/9 mm thickness CS tibial bearing insert Pathology: none sent Surgeon: Monroe Morfin Fruit Tester: Anish Olsen Fruit Tester: The nurse practitioner the nurse practitioner assisted with critical portions of the case including positioning, draping, exposure, component implantation, closure and dressing application and is present through the entirety of the case. Anesthesia: Nerve Block (Spinal, adductor canal block) Estimated blood loss (mL): 100 Findings: The patient eburnated bone over the medial femoral condyle, medial tibial plateau, and trochlea. There was minimal patellar chondromalacia and the patella articulated of the femoral component Condition: stable Disposition: PACU Procedure: The patient was taken to the operating room. Patient was given 1 g of tranexamic acid and 2 g of Ancef. The above anesthesia provided by the anesthesia service. A timeout was performed. The patient was prepped and draped in the usual fashion with the lower extremity exposed. A anterior incision was made, midline, from a point proximal to the patella to the distal tibial tubercle. The knee was entered through a medial parapatellar approach. The patella could be displaced laterally and the knee flexed. The patellar fat pad was resected to provide better visibility. Retractors were placed medially and laterally adjacent to the tibial plateau. At a point approximately 8 cm above the patella, 2 small incisions were made with a scalpel blade and 2 long threaded pins were placed into the anterior medial femur engaging both cortices. The femoral arrays were placed over these pins and secured. At a point 8 cm distal to the tibial tubercle. 2 shorter bicortical threaded pins were placed across the anterior medial tibia and the tibial arrays placed. A checkpoint was made just proximal and medial to the medial femoral condyle and just medial to the tibial plateau. Small osteotomes were placed in the joint in both flexion and extension to determine ligamentous laxity. The femur was placed in 2 degrees of additional external rotation in the tibia cut increased 2 mm to create equal flexion gaps. The JHONNY robot was then introduced to the field and the femur and tibia cut in accordance with our plan. he Hernandez [employer] Nephew Fastseal was then used to provide hemostasis, particularly about the posterior capsule. A trial with the above components provided excellent stability and full range of motion. The femur was then prepared for the femoral pegs of the component in the tibia for the tibial component. The femur and tibia were then press-fit into place. An osteotome was used to remove the lateral 8 mm of the patella to minimize chances of later impingement. A neurectomy was accomplished circumferentially about the patella with electrocautery and lateral osteophytes removed. Surfaces were cleaned with a gentamicin solution. The femur and tibia were then press-fit into place. The posterior capsule and collateral ligaments were then injected with a solution of 100 mL of 0.2% ropivacaine, 1 mL of a 1:1000 epinephrine solution, 30 mg of Toradol, and 1 g of tranexamic acid. Final polyethylene component was then snapped into place into the tibia. The extensor retinaculum was closed with a running 1 Stratafix interrupted 1 Ethibond. The subcutaneous tissues were closed with 2-0 Vicryl and the skin was closed with a running 4-0 Stratafix. The wound was covered with a Dermabond Prineo dressing. It was covered with 4xrs and a compressive Tubigauze was applied. The patient was taken to recovery room in stable condition.
--- NOTE | 2022-04-21 14:50 | XR_ITS ---
WS: [id number] Left knee, AP and lateral views, 04/21/2022 Clinical Data: post op Comparison: AP knees, left knee, 03/20/2022 Findings: The left knee arthroplasty is in good position. No periprosthetic fractures are seen. There is air in the joint space from the recent surgery. Minimal orthopedic holes are seen in the distal left femur and proximal left tibia from the recent almendarez rgery. There is minimal vascular calcification XR/XR knee LT 1-2V 65982 Impression: Left knee arthroplasty.
--- NOTE | 2022-04-21 15:18 | ANES.PROC ---
Anesthesia Procedures Procedure/Date: 04/21/22 Nerve Block ^: Nerve Block 1: Main Anesthesia: spinal anesthesia block Time Out Performed: Yes Consent: requested by attending/covering physician, from patient, risks and benefits reviewed and patient agrees to proceed Nerve block location: adductor canal (left) Anesthesia monitors applied: pulse oximetry, EKG, BP cuff and oxygen Nerve block position: supine Anesthetic Used: ropivicaine 0.5% Amount of anesthesia used (mL): 20 Ultrasound used to: recognize landmarks Nerve Stimulator Used?: No Interscalene/Femoral BLK: 4 stimuplex 21 g needle used for position and inplane approach Injection: neg aspiration of heme Patient Tolerated Procedure: well Complications: none
--- NOTE | 2022-04-21 15:21 | ANE.PACU2 ---
Inpatient post-anesthesia follow up: Airway intact: Yes Vital signs: Temperature 98.7 F Pulse Rate 70 Respiratory Rate 17 Blood Pressure 121/67 Pulse Oximetry 95 Oxygen Delivery Me thod Room Air Oxygen Flow Rate 6 Fraction of Inspir ed Oxygen Hydration adequate: Yes Nausea and vomiting: No Pain level: 1 Mental status: Baseline
[2022-04-21] MEDS: sodium chloride 0.9% 1,000 ML 100 ML IV (15:35)
[2022-04-21] MEDS: sennosides-docusate Tablet 2 TAB PO (17:23)
[2022-04-21] MEDS: metoprolol tartrate 50 mg Tablet 100 MG PO (17:23)
[2022-04-21] MEDS: CELEcoxib 200 mg Capsule PO (21:45)
[2022-04-22] VITALS (7 sets, daily range): BP systolic 118–141; BP diastolic 68–78; PULSE 54–64; RESP 16–18; TEMP 36.5–36.7; O2SAT 93–96
[2022-04-22] MEDS: sodium chloride 0.9% 1,000 ML 100 ML IV (01:15)
[2022-04-22] MEDS: ceFAZolin 2,000 MG in sodium chloride 0.9% (plus) 50 ML 100 MG IV ×2 (03:32→10:57)
[2022-04-22] MEDS: acetaminophen 500 mg Tablet 1000 MG PO (03:32)
[2022-04-22] MEDS: oxyCODONE 5 mg IR Tab/Cap PO ×2 (03:32→08:10)
[2022-04-22 05:16] LABS: Hemoglobin 12.2 g/dL (11.7-16.6)
[2022-04-22] MEDS: atorvastatin 40 mg Tablet 80 MG PO (08:10)
[2022-04-22] MEDS: hydroCHLOROthiazide 25 mg Tablet PO (08:10)
[2022-04-22] MEDS: escitalopram 10 mg Tablet 20 MG PO (08:10)
[2022-04-22] MEDS: cetirizine 10 mg Tablet PO (08:10)
[2022-04-22] MEDS: aspirin 325 mg EC Tablet PO (08:11)
[2022-04-22] MEDS: amlodipine 5 mg Tablet 10 MG PO (08:11)
[2022-04-22] MEDS: CELEcoxib 200 mg Capsule PO (08:11)
[2022-04-22] MEDS: sennosides-docusate Tablet 2 TAB PO (08:11)
[2022-04-22] MEDS: lisinopril 20 mg Tablet PO (08:11)
[2022-04-22] MEDS: gabapentin 300 mg Capsule PO (08:11)
[2022-04-22] MEDS: famotidine 20 mg Tablet PO (08:11)
[2022-04-22] MEDS: metoprolol tartrate 50 mg Tablet 100 MG PO (08:11)
[2022-04-22] MEDS: isosorbide mononitrate ER 30 mg Tablet PO (08:12)
--- NOTE | 2022-04-22 09:21 | PM.DCS ---
Discharge Providers Date of Admission: 04/21/22 14:53 Date of Discharge: April 22, 2022 Attending Provider at Admission: Monroe Morfin MD Attending Provider at Discharge: Monroe Morfin MD Primary Care Provider: BLANCO Ojeda Reason for Visit Reason for Visit: unilateral primary osteoarthritis, left knee Brief History: The patient is a 48-year-old male with progressive left knee pain. He had a previous right total knee arthroplasty with excellent result. He was admitted for elective left total knee replaced Hospital Course Hospital Course The patient tolerated surgery well. They remained hemodynamically stable. They was begun on aspirin and foot pumps for DVT prophylaxis. The patient was mobilized with therapy beginning the day of surgery and by the first postoperative day independent with the walker. As the pain was adequately controlled and they were fully mobile they were discharged home. Physical Exam Narrative: On the day of discharge the knee incision was clean. They had no drainage. There is minimal swelling in the thigh and knee and the calf. No distal neurovascular deficits were noted Discharge Data Studies Completed and Pending Completed Studies During Hospitalization Category Date Time Status XR knee LT 1-2V 63083 Stat Exams 04/21/22 14:50 Completed Radiology Impressions Knee X-Ray 04/21/22 14:50 Impression: Left knee arthroplasty. Laboratory Results WBC 4.6 10^3/uL (4.0-10.0) 04/11/22 08:00 RBC 4.73 10^6/uL (4.1-5.3) 04/11/22 08:00 Hgb 12.2 g/dL (11.7-16.6) 04/22/22 05:07 Hct 41.9 % (42.0-52.0) L 04/11/22 08:00 MCV 88.6 fl (80-94) 04/11/22 08:00 MCH 28.8 pg (28.0-34.0) 04/11/22 08:00 MCHC 32.5 g/dL (30.0-36.0) 04/11/22 08:00 RDW 12.8 % (12.1-15.1) 04/11/22 08:00 Plt Count 194 10^3/cmm (130-400) 04/11/22 08:00 MPV 11.6 fL (7.4-10.4) H 04/11/22 08:00 Neut % (Auto) 52.7 % 04/11/22 08:00 Lymph % (Auto) 31.3 % 04/11/22 08:00 [place] % (Auto) 9.7 % 04/11/22 08:00 Eos % (Auto) 5.0 % 04/11/22 08:00 Baso % (Auto) 1.1 % 04/11/22 08:00 Neut # (Auto) 2.45 10^3/uL (1.8-7.7) 04/11/22 08:00 Lymph # (Auto) 1.5 10^3/uL (0.8-4.8) 04/11/22 08:00 [place] # (Auto) 0.5 10^3/uL (0.2-0.9) 04/11/22 08:00 Eos # (Auto) 0.2 10^3/uL (0.0-0.8) 04/11/22 08:00 Baso # (Auto) 0.1 10^3/uL (0.0-0.1) 04/11/22 08:00 Nucleated RBC % (auto) 0 % 04/11/22 08:00 Nucleated RBCs # 0.0 /100WBC 04/11/22 08:00 Sodium 139 mmol/L (136-145) 04/11/22 08:00 Potassium 3.7 mmol/L (3.5-5.1) 04/11/22 08:00 Chloride 103 mmol/L (98-107) 04/11/22 08:00 Carbon Dioxide 31 mmol/L (22-29) H 04/11/22 08:00 Anion Gap 8.7 (5-19) 04/11/22 08:00 BUN 14 mg/dL (6-20) 04/11/22 08:00 Creatinine 0.8 mg/dL (0.7-1.2) 04/11/22 08:00 GFR Calculation 99.3 mL/min (90-130) 04/11/22 08:00 Glucose 93 mg/dL (65-115) 04/11/22 08:00 Calculated Osmolality 288 mOsm/kg (285-295) 04/11/22 08:00 Calcium 9.4 mg/dL (8.5-10.5) 04/11/22 08:00 Blood Type O Positive 04/21/22 11:35 Rho(D) Type Positive 04/21/22 11:35 Antibody Screen Not Reportable 04/21/22 11:35 PEG Antibody Screen Negative 04/21/22 11:35 Vitals Last Vital Signs Temp 97.7 F 04/22/22 04:00 Pulse 60 04/22/22 04:00 Resp 16 04/22/22 08:10 BP 132/76 04/22/22 04:00 Pulse Ox 96 04/22/22 04:00 O2 Del Method 04/22/22 04:00 O2 Flow Rate 2 04/21/22 20:00 Discharge Plan Discharge Patient Disposition: Home Condition: Stable Prescriptions: New celecoxib 200 mg Capsule 200 mg PO Q12H 14 Days Qty: 28 0RF acetaminophen 500 mg Tablet 1,000 mg PO Q8H 14 Days Qty: 84 0RF aspirin 325 mg Tablet,Delayed Release (Dr/Ec) 325 mg PO DAILY 30 Days Qty: 30 0RF gabapentin 300 mg Capsule 300 mg PO BID 7 Days Qty: 14 0RF oxycodone 5 mg Tablet 5 mg PO Q4H PRN (Reason: Moderate Pain) 7 Days Qty: 30 0RF Continued metoprolol tartrate 100 mg tablet 100 mg PO BID lisinopril-hydrochlorothiazide 20-25 mg tablet 1 tab PO ONCE amlodipine 5 mg tablet 10 mg PO DAILY meloxicam 15 mg tablet 15 mg PO DAILY isosorbide mononitrate 30 mg tablet extended release 24 hr 30 mg PO DAILY Lexapro 20 mg tablet 20 mg PO DAILY 30 Days Qty: 30 3RF cetirizine [Zyrtec] 10 mg Tablet 10 mg PO DAILY famotidine 20 mg Tablet 20 mg PO DAILY rosuvastatin 20 mg tablet 20 mg PO DAILY diclofenac sodium 1 % gel 2 g TOPICAL QID Discharge Orders: Discharge Order (Routine); Ordered 04/22/22 Ordered By: Monroe Morfin Referrals: Monroe Morfin MD [Physician] - 05/06/22 2:15 pm Discharge Diet: Advance as tolerated Discharge Activity: Limit activity as instructed Patient Instructions: Aspirin (By mouth), Gabapentin (By mouth), Oxycodone, Rapid Release (By mouth), Celecoxib (By mouth), Knee Replacement (GEN), Opioid Safety Activity Restrictions/Additional Instructions: Okay to shower Keep Tubigauze sleeve in place for swelling. Okay to remove for hygiene. Apply FirstIce up to 20 min/hr for pain and swelling Take Celebrex twice a day for the next 15 days for pain , discontinue other anti-inflammatories Take Neurontin twice a day for 7 days. Take Tylenol 500mg (2 tabs) as needed 3 times a day for mild pain take oxycodone for breakthrough pain. Exercises per physical therapy. May weight-bear as tolerated on total knee arthroplasty IF HAVE ANY PROBLEMS OR QUESTIONS CALL [facility] AND ASK TO HAVE DR. JALEESA ALCANTAR. Discharge Attestations Time Spent in Discharge Care*: other Quality Metrics Clinical Quality Measures [ No reported AMI, CVA or VTE this stay] Coding Level of Care Code Acute Code for Katlyng Chhaya
--- NOTE | 2022-04-22 11:00 | PC.CHAP ---
Pastoral Care Encounter/Spiritual Assessment Type of Contact [] Declined stripper preliminary visit [] Patient/Family/Request visit [] Outpatient visit [] Follow-up visit [] Physician referral [] Code/Alert [x] Routine visit [] Staff referral [] Actively dying [] Patient sleeping [] Family support [] [] Out of room [] Palliative care [] [] Receiving care in room [] Pre-surgical visit [] Trauma [] Long length of stay [] ICU visit [] Other: Relational/Emotional Strength [x] Patient feels connected with others/family/visitors/staff [] Distress [] Loneliness/isolation [] Abandonment Spirituality of Patient [x] Person of Quin [] Attends Druze of their Quin [x] Believes in Prayer [] Reads Bible or Caodaism materials [] There are Spiritual issues to be addressed Epoxy Coatings Installer Interventions [x] Prayer [x] Active listening [] Non-anxious presence [x] Spiritual/emotional support [] Crisis/trauma care [] Spiritual counseling [] Bereavement support [] Provided bereavement packet [] Provided Bible/devotional materials [] Provided toy/stuffed animal, coloring book to patient or family member [] Provided Communion [] Anointing/[place] [] Salvation [x] Completed spiritual assessment [] Other: Impact on Illness or Injury [] Angry [] Fearful [] Anxious [] Often cries [] Exhaustion [] Unable to work [] Unable to attend orthodoxy [] Unable to walk/stand [] Unable to read [] Unable to drive [] Unable to eat/drink [] Unable to sleep [] Unable to be with family [] Patient intubated [] Other: Summary Time spent with patient 10 min
== END 2022-04-22 12:38 | disposition home or self-care (01) ==
LOC: MEDSURG 16:34
PROVIDERS: Anesthesiology; Admitting Provider Orthopaedic Surgery; PCP Nurse Practitioner Family; Visit Provider Orthopaedic Surgery
PROC: 8E0Y0CZ Robotic Assisted Procedure of Lower Extremity, Open Approach (ICD-10-PCS; CPT 27447; principal; 2022-04-21 12:25)
DX: M17.12 Unilateral primary osteoarthritis, left knee (principal); I25.10 Atherosclerotic heart disease of native coronary artery without angina pectoris; I10 Essential (primary) hypertension; I25.2 Old myocardial infarction; E78.5 Hyperlipidemia, unspecified; F17.220 Nicotine dependence, chewing tobacco, uncomplicated; F41.9 Anxiety disorder, unspecified
CPT/HCPCS: 27447; 36415; 73560; 80048; 85018; 85025; 86850; 86900; 97110; 97116; 97161; 97165; C1776; G0378; J0171; J0690; J1580; J1885; J2250; J2704; J2795; J3490; J7030

== ENCOUNTER 2022-05-13 20:00 | Outpatient (CLI) | payer BC, MEDICAID, SELFPAY | END 2022-05-13 20:01 | disposition home or self-care (01) | LOC: SLEEP 05-14 04:28 | PROVIDERS: PCP Nurse Practitioner Family; Visit Provider Nurse Practitioner Family | DX: G47.33 Obstructive sleep apnea (adult) (pediatric) (principal) | CPT/HCPCS: 95811 ==

== ENCOUNTER → 2022-06-03 12:43 | Outpatient (BNVA) | payer BC, MEDICAID, SELFPAY | PROVIDERS: PCP Nurse Practitioner Family; Visit Provider Orthopaedic Surgery | DX: Z96.652 Presence of left artificial knee joint (principal) | CPT/HCPCS: 73560; 73565 ==

== ENCOUNTER 2022-06-07 12:13 | Outpatient (CLI) | payer BC, MEDICAID, SELFPAY ==
--- NOTE | 2022-06-07 12:45 | USCV_ITS ---
Mohinder Presley Age: 56 Gender: M : 1965 Exam Date: 06/07/2022 12:42 Ordering Phys: Monroe Morfin MD Technologist: Exam Location: [facility] – [place] Indication: lt leg pain and swelling PROCEDURES: Venous duplex imaging was performed in only the left lower extremity. The following venous structures were evaluated: common femoral vein, profunda vein, proximal portion of the greater saphenous vein, superficial femoral vein, and the popliteal vein. In addition, the posterior tibial and peroneal trunk were evaluated. FINDINGS: Normal 2-D Doppler and augmentation and compressibility throughout the lower extremity venous structures. Additional imaging through the proximal calf veins also reveals no thrombus. Limited evaluation of the greater saphenous vein is patent with no thrombus. CONCLUSIONS No evidence of left lower extremity DVT. Destin Bravo MD (Electronically Signed) Final Date: 08 June 2022 09:57 S
== END 2022-06-07 12:14 | disposition home or self-care (01) ==
LOC: RAD 12:14
PROVIDERS: PCP Nurse Practitioner Family; Visit Provider Orthopaedic Surgery
DX: M79.669 Pain in unspecified lower leg (principal); Z96.652 Presence of left artificial knee joint
CPT/HCPCS: 93971

== ENCOUNTER → 2022-07-10 09:20 | Outpatient (BNVA) | payer BC, MEDICAID, SELFPAY | PROVIDERS: PCP Nurse Practitioner Family; Visit Provider Internal Medicine Cardiovascular Disease | DX: I10 Essential (primary) hypertension (principal) | CPT/HCPCS: 93005 ==

== ENCOUNTER 2022-07-11 14:35 | Outpatient (CLI) | payer BC, MEDICAID, SELFPAY ==
--- NOTE | 2022-07-11 15:00 | CTR_ITS ---
PROCEDURE INFORMATION: Exam: CT Right Upper Extremity Without Contrast, Shoulder Exam date and time: 07/11/2022 2:55 PM Age: 57 years old Clinical indication: Pain; Shoulder; Right; Additional info: Pain, per Dr. Morfin protocol. Preop RT shoulder surgery TECHNIQUE: Imaging protocol: Computed tomography of the right upper extremity without contrast. Exam focused on the shoulder. Radiation optimization: All CT scans at this facility use at least one of these dose optimization techniques: automated exposure control; mA and/or kV adjustment per patient size (includes targeted exams where dose is matched to clinical indication); or iterative reconstruction. REPORTING DATA: Count of CT and Cardiac NM exams in prior 12 months: This patient has received [address] and 0 known cardiac nuclear medicine studies in the 12 months prior to the current study. COMPARISON: CR XR shoulder RT min 2V* [id number] 09/18/2021 8:13 AM RADIATION DOSE METRICS: Total DLP (mGy-cm): 532.51 FINDINGS: Bones/joints: Severe glenohumeral joint osteoarthritis with a large humeral head osteophyte. 3.8 cm soft tissue calcification anterior to the glenohumeral joint appears degenerative in nature. Moderate acromioclavicular joint osteoarthritis. Rotator cuff calcific tendinitis given multiple punctate calcifications in the region of the rotator cuff. Soft tissues: See above CT/CT shoulder RT wo con* [id number] IMPRESSION: 1. Severe glenohumeral joint osteoarthritis with a large humeral head osteophyte. 2. 3.8 cm soft tissue calcification anterior to the glenohumeral joint appears degenerative in nature. 3. Moderate acromioclavicular joint osteoarthritis. 4. Rotator cuff calcific tendinitis given multiple punctate calcifications in the region of the rotator cuff.
== END 2022-07-11 14:36 | disposition home or self-care (01) ==
LOC: RAD 14:37
PROVIDERS: PCP Nurse Practitioner Family; Visit Provider Orthopaedic Surgery
DX: M19.011 Primary osteoarthritis, right shoulder (principal); M25.711 Osteophyte, right shoulder; M75.31 Calcific tendinitis of right shoulder
CPT/HCPCS: 73200

== ENCOUNTER 2022-08-04 13:32 | Observation (INO) | payer BC, MEDICAID, SELFPAY ==
[2022-07-25 10:28] VITALS: BMI 37.0
--- NOTE | 2022-07-25 10:50 | ANES.PREANE2 ---
Pre-Anesthetic Assessment Height/Weight: Height 1.73 m Weight 110.677 kg Operation Date: 08/04/22 13:05 Proposed Procedures p Right total shoulder arthroplast 69859,M19.011(Right) - Monroe Morfin MD Familial anesthetic complications: None Social Tobacco (chews) and No alcohol Exam alert, oriented x 3, clear to auscultation bilaterally and regular rate & rhythm Airway Mallampati: Class II Dentition: false Pulmonary Sleep Apnea CV/HEM Arrythmia (bradycardia), Coronary Artery Disease, Hypertension and Myocardial Infarction Anesthetic Plan ASA status: 3 Anesthesia: General and Regional (specify below) Risk of > 500 ml blood loss (7ml/kg in children): No Medications/Allergies Home Medications Medication Instructions Recorded Confirmed Last Taken Type cetirizine 10 mg tablet (Zyrtec) 10 mg PO DAILY 10/07/21 07/25/22 07/25/22 History diclofenac sodium 1 % topical gel 2 g topical QID 11/12/21 07/25/22 07/24/22 History meloxicam 15 mg tablet 15 mg PO DAILY 11/18/21 07/25/22 07/25/22 History famotidine 20 mg tablet 20 mg PO DAILY 04/11/22 07/25/22 07/25/22 History escitalopram oxalate 20 mg tablet 20 mg PO DAILY 30 days #30 tabs 07/07/22 07/25/22 07/25/22 Rx (Lexapro) amlodipine 5 mg tablet 10 mg PO DAILY #90 tabs 07/10/22 07/25/22 07/25/22 Rx isosorbide mononitrate 30 mg 45 mg PO DAILY #135 tabs 07/10/22 07/25/22 07/25/22 Rx tablet,extended release 24 hr lisinopril 20 1 tab PO DAILY #90 tabs 07/10/22 07/25/22 07/25/22 Rx mg-hydrochlorothiazide 25 mg tablet metoprolol tartrate 100 mg tablet 150 mg PO DIRECTED #135 tabs 07/10/22 07/25/22 07/25/22 Rx rosuvastatin 20 mg tablet 20 mg PO .HS #90 tabs 07/10/22 07/25/22 07/25/22 Rx diphenhydramine 25 1 tab PO BEDTIME 07/25/22 07/25/22 07/24/22 History mg-acetaminophen 500 mg tablet (Tylenol PM Extra Strength) Allergies Allergy/AdvReac Type Severity Reaction Status Date / Time No Known Allergies Allergy Verified 07/25/22 10:23 [facility] Anesthesia Medical History (Updated 07/18/22 @ 09:22 by Tanya Khoury MD) TERESA (generalized anxiety disorder) History of OR (myocardial infarction) HTN (hypertension) Hyperlipidemia MDD (major depressive disorder) Primary osteoarthritis, left shoulder left total shoulder arthroplasty DOS: 02/07/[address] Morfin Psychiatric care Surgical History (Updated 07/17/22 @ 06:17 by Tanya Khoury MD) History of ankle surgery S/P knee replacement S/P total knee arthroplasty Status post reverse total arthroplasty of left shoulder Family History Mother Heart disease Father Heart disease Grandmother Diabetes Hypertension Cancer Social History Smoking and tobacco status: former smoker Alcohol intake: former Data Anesthesia Cardiac Studies: No Data to Display
[2022-07-25 10:53] LABS: Add Urine Microscopic? NO; Charge for UA Resulting for Rev
[2022-07-25 10:54] LABS: Basophils % 0.8 %; Eosinophils # 0.3 10^3/uL (0.0-0.8); Eosinophils % 5.7 %; Hematocrit 40.3 % (42.0-52.0); Hemoglobin 13.3 g/dL (11.7-16.6); Lymphocytes # 1.4 10^3/uL (0.8-4.8); Lymphocytes % 27.5 %; Mean Corpuscular Hemoglobin 29.4 pg (28.0-34.0); Mean Platelet Volume 10.8 fL (7.4-10.4); Monocytes # 0.5 10^3/uL (0.2-0.9); Monocytes % 9.3 %; Neutrophils # 2.79 10^3/uL (1.8-7.7); Neutrophils % 56.5 %; Nucleated Red Blood Cells % 0 %; Platelet Count 218 10^3/cmm (130-400); Red Blood Count 4.53 10^6/uL (4.1-5.3); Red Cell Distribution Width 12.1 % (12.1-15.1); White Blood Count 4.9 10^3/uL (4.0-10.0)
[2022-07-25 11:03] LABS: Bilirubin Urine Neg (Negative); Blood Urine Neg (Negative); Glucose Urine UA Norm (Normal); Ketones Urine Negative (Negative); Leukocyte Esterase Urine Negative (Negative); Nitrate Urine Negative (Negative); Protein Urine Neg (Negative); Specific Gravity, Urine 1.005 (1.005-1.030); Urine Appearance Clear (CLEAR); Urine Color Yellow (Yellow); Urobilinogen Urine Neg (Negative); pH Urine 6 (5-7)
[2022-07-25 11:11] LABS: Alanine Aminotransferase 19 U/L (0-41); Albumin Level 4.4 g/dL (3.5-5.2); Alkaline Phosphatase 81 U/L (40-130); Anion Gap 13.8 (5-19); Aspartate Amino Transferase 23 U/L (0-40); Blood Urea Nitrogen 11 mg/dL (6-20); Calcium 9.1 mg/dL (8.5-10.5); Carbon Dioxide 29 mmol/L (22-29); Chloride 101 mmol/L (98-107); Globulin 2.1 g/dL (1.3-4.6); Glomerular Filtration Rate 115.4 mL/min (90-130); Glucose 88 mg/dL (65-115); Osmolality Calculated 289 mOsm/kg (285-295); Potassium 3.8 mmol/L (3.5-5.1); Sodium 140 mmol/L (136-145); Total Bilirubin 0.7 mg/dL (0.15-1.2); Total Protein 6.5 g/dL (6.6-8.7)
[2022-08-04] VITALS (17 sets, daily range): BP systolic 118–137; BP diastolic 71–83; PULSE 52–68; RESP 16–18; TEMP 36.1–36.6; O2SAT 90–99
[2022-08-04] MEDS: scopolamine 1.5 Patch 1 PATCH TRANSDERMA (08:26)
[2022-08-04] MEDS: sodium chloride 0.9% 1,000 ML 30 ML IV (08:28)
[2022-08-04] MEDS: CELEcoxib 200 mg Capsule 400 MG PO (08:47)
[2022-08-04] MEDS: ondansetron 2 mg/ML SDV 2 mL 4 MG IVP (08:47)
[2022-08-04] MEDS: acetaminophen 500 mg Tablet 1000 MG PO ×2 (08:48→17:33)
[2022-08-04] MEDS: oxyCODONE 20 mg ER (12 HR) Tablet PO (08:48)
[2022-08-04] MEDS: gabapentin 300 mg Capsule PO ×2 (08:49→17:33)
--- NOTE | 2022-08-04 09:43 | W.PM.OPSFHP ---
Same Day Surgery H&P Indication for Procedure/HPI DATE OF PROCEDURE: August 04, 2022 CHIEF COMPLAINT/INDICATIONFOR SURGICAL PROCEDURE: Right total shoulder arthroplasty PREOP DIAGNOSIS: Osteoarthritis right shoulder PLANNED PROCEDURE: Operation Date: 08/04/22 09:50 Proposed Procedures p Right total shoulder arthroplast 82471,M19.011(Right) - Monroe Morfin MD 57-year-old male with years of right shoulder pain. No improvement with injections or anti-inflammatories. Unable to use the arm for any daily activities. Did well with left total shoulder in the past and here now for right total shoulder arthroplasty Medications/Allergies* Home Medications Medication Instructions Recorded Confirmed Type cetirizine 10 mg tablet (Zyrtec) 10 mg PO DAILY 10/07/21 07/25/22 History diclofenac sodium 1 % topical gel 2 g topical QID 11/12/21 07/25/22 History meloxicam 15 mg tablet 15 mg PO DAILY 11/18/21 07/25/22 History famotidine 20 mg tablet 20 mg PO DAILY 04/11/22 07/25/22 History diphenhydramine 25 1 tab PO BEDTIME 07/25/22 07/25/22 History mg-acetaminophen 500 mg tablet (Tylenol PM Extra Strength) Allergies/Adverse Reactions Allergy/AdvReac Type Severity Reaction Status Date / Time No Known Allergies Allergy Verified 07/25/22 10:23 Current Medications: Generic Name Dose Route Start Last Admin Trade Name Freq PRN Reason Stop Dose Admin Sodium Chloride 1,000 mls @ 30 mls/hr 08/04/22 08:15 08/04/22 08:28 Sodium Chloride 0.9% IV 08/05/22 08:14 30 mls/hr .Q24H TAMIKO Administration Ondansetron HCl 4 mg 08/04/22 08:07 08/04/22 08:47 Ondansetron 2 Mg/Ml Sdv 2 Ml IVP 4 mg Q5M PRN Administration NAUSEA AND VOMITING Pertinent History/Comorbid Conditions* Medical History (Updated 07/18/22 @ 09:22 by Tanya Khoury MD) TERESA (generalized anxiety disorder) History of CA (myocardial infarction) HTN (hypertension) Hyperlipidemia MDD (major depressive disorder) Primary osteoarthritis, left shoulder left total shoulder arthroplasty DOS: 02/07/[address] Morfin Psychiatric care Surgical History (Updated 07/17/22 @ 06:17 by Tanya Khoury MD) History of ankle surgery S/P knee replacement S/P total knee arthroplasty Status post reverse total arthroplasty of left shoulder Family History (Updated 07/10/22 @ 07:21 by Mercedes Rushing RN) Diabetes Grandmother Heart disease Mother Father Cancer Grandmother Hypertension Grandmother Social History Smoking and tobacco status: former smoker Alcohol intake: former Pertinent Exam Findings alert, oriented x 3, clear to auscultation bilaterally and regular rate & rhythm Today I can flex him to 100 degrees and externally rotate him to 20 degrees Pain with all extremes of motion Recommendations Surgery/Procedure today Coding Level of Care Code Acute Code for Chg Fwd Diagnoses
--- NOTE | 2022-08-04 09:49 | P.ANESUD_ITS ---
Pre-Anesthetic Update Pre-Anesthetic Assessment: Date of Surgery/Procedure: 08/04/22 Preop Monie gnosis: Osteoarthritis right shoulder Proposed Procedure: Operation Date: 08/04/22 09:50 Proposed Procedures p Right total shoulder arthroplast 79982,M19.011(Right) - Monroe Morfin MD Any changes to Pre-Anesthetic Assessment?: No Last Intake: Intake Last Liquid Date 08/03/22 Last Liquid Time 20:00 Last Solid Date 08/03/22 Last Solid Time 18:00 Vitals: Temperature 97.1 F L 08/04/22 08:07 Temperature Source Temporal Artery S can 08/04/22 08:07 Pulse Rate 52 L 08/04/22 08:07 Respiratory Rate 18 08/04/22 08:48 Respiratory Effort Spontaneous 08/04/22 08:48 Respiratory Depth Normal 08/04/22 08:48 Respiratory Patter n Normal 08/04/22 08:48 Blood Pressure 136/82 08/04/22 08:26 Blood Pressure Renee n 100 08/04/22 08:07 Pulse Oximetry 97 08/04/22 08:48 Oxygen Delivery Me thod Room Air 08/04/22 08:52 Exam: Pre-Anes Outpt Exam: alert, oriented x 3, clear to auscultation bilaterally and regular rate & rhythm Cardiac Studies: No Data to Display Anesthesia Procedures Nerve Block: Nerve Block 1: Main Anesthesia: general anesthesia Time Out Performed: Yes Consent: requested by attending/covering physician, from patient, risks and benefits reviewed and patient agrees to proceed Nerve block location: interscalene (right) Anesthesia monitors applied: pulse oximetry, EKG, BP cuff and oxygen Nerve block position: semi sitting Anesthetic Used: ropivicaine 0.5% Amount of anesthesia used (mL): 30 Ultrasound used to: recognize landmarks and visualize and ID brachial plexus Nerve Stimulator Used?: No Interscalene/Femoral BLK: 2 stimuplex 22 g needle used for position and inplane approach Injection: neg aspiration of heme Patient Tolerated Procedure: well Complications: none
[2022-08-04] MEDS: ceFAZolin 2,000 MG in sodium chloride 0.9% (plus) 50 ML 100 MG IV ×2 (10:22→17:34)
[2022-08-04] MEDS: tranexamic acid 1,000 mg/10mL SDV 1000 MG IV (10:55)
[2022-08-04] MEDS: EPINEPHrine 1 mg/mL INJ XX (11:51)
--- NOTE | 2022-08-04 13:02 | PM.OP ---
Operative Report Date of procedure: August 04, 2022 Pre-op diagnosis: Preop Diagnosis Osteoarthritis right shoulder Post-op diagnosis: same Procedure done: Right total shoulder arthroplasty Implants: Tornier total shoulder 1) Perform for standard stem 2) Humeral Head 50 mm, thickness 19 mm 3) Intercell Connector Placer 1.5 mm offset 3) Perform cortiolc pegged glenoid 15 degree posterior augment, large Pathology: none sent Surgeon: Monroe Morfin Anesthesia: General and Nerve Block (Interscalene) Estimated blood loss (mL): 300 Complications: None Findings: The patient has severe degenerative changes of his glenohumeral joint with flattening of the humeral head and large anterior and inferior osteophytes. He has excessive posterior wear of his posterior glenoid consistent with a B2 glenoid. The rotator cuff was intact. Condition: stable Disposition: PACU Procedure: Patient was given a interscalene block in holding. The patient was taken to the operating room and was given 2 g of Ancef. He is prepped and draped in the beachchair position with his arm supported on a Mann stand. A timeout was performed. A 10cm incision was made just lateral to the coracoid extending distally in line with the medial deltoid border. Dissection was carried out identifying the cephalic vein in the deltopectoral interval. Dissection was accomplished manually through the interval and subacromial and lateral deltoid adhesions released by hand. A Juan C soft tissue protector was placed. The biceps tendon was identified distally and traced proximally through the bicipital groove. The subscapularis and underlying capsule were then peeled off of the lesser tuberosity. The free tendon was fixed with braided sutures in a locking fashion and the free ends secured with a hemostat. The rotator interval was then split. The shoulder then could be dislocated out of the wound. Additional debridement was accomplished of the large osteophytes anteriorly over the humeral head and progressive debridement with a rongeur and cautery was accomplished inferiorly and posteriorly. in accordance with our preoperative plan, using the intramedullary guide a humeral head cut was made at the level of the capsular insertions with retractors to protect the rotator cuff. The humeral metaphysis was sized to a size 4 standard. A central pin was placed in the metaphysis reamed for the stem. A trial stem was placed. Retractors were then placed around the glenoid with the humeral head being retracted posteriorly and inferiorly. Release of the capsule was accomplished beginning anteriorly and working posteriorly around the humeral head. In accordance with the plan the central guidepin was placed. The glenoid was planed down to subchondral bone and prepared for the 15 degree posterior wedge. The central peg hole and peripheral holes were then created. The glenoid was irrigated removing cartilaginous remnants. Peripheral peg holes were initially soaked in a epinephrine soaked in later dry sponge.. Simplex P antibiotic cement was injected in each peg hole and the final glenoid component placed. Trial reduction was accomplished before settling on the desired humeral head. The final humeral head was placed in the shoulder reduced. 4 drill holes were then made beginning in the bicipital groove posteriorly into the greater tuberosity. Sutures from the subscapularis were passed through these holes and the sutures were secured over a 4-hole mini plate over the greater tuberosity with excellent purchase. The rotator interval was closed laterally with a braided nylon suture. The shoulder was an iodine solution. The deltopectoral interval was closed with interrupted 0 Vicryl suture. Subcutaneous tissues were closed with running 2-0 Stratafix. Skin edges closed with a running 4-0 Stratafix. The skin was covered with a Prineo skin glue and covered with OpSite. The patient was placed in shoulder immobilizer, extubated, and taken recovery room in stable condition.
--- NOTE | 2022-08-04 13:22 | XR_ITS ---
WS: [id number] XR shoulder RT min 2V* [id number] REASON FOR EXAM: Right total shoulder FINDINGS: Total right shoulder shoulder arthroplasty. Components of the arthroplasty are intact and in proper position and alignment. XR/XR shoulder RT min 2V* [id number] IMPRESSION: Right total shoulder arthroplasty without abnormality.
--- NOTE | 2022-08-04 13:34 | ANE.PACU2 ---
Inpatient post-anesthesia follow up: Airway intact: Yes Vital signs: Temperature 97 F Pulse Rate 60 Respiratory Rate 16 Blood Pressure 128/83 Pulse Oximetry 95 Oxygen Delivery Me thod Simple Mask Oxygen Flow Rate 6 Fraction of Inspir ed Oxygen Hydration adequate: Yes Nausea and vomiting: No Pain level: 1 Mental status: Baseline
[2022-08-04] MEDS: sodium chloride 0.9% 1,000 ML 80 ML IV (15:03)
[2022-08-04] MEDS: metoprolol tartrate 50 mg Tablet PO (17:39)
[2022-08-04] MEDS: atorvastatin 40 mg Tablet 80 MG PO (20:30)
[2022-08-04] MEDS: CELEcoxib 200 mg Capsule PO (20:30)
[2022-08-05] MEDS: acetaminophen 500 mg Tablet 1000 MG PO ×2 (01:24→09:48)
[2022-08-05] MEDS: ceFAZolin 2,000 MG in sodium chloride 0.9% (plus) 50 ML 100 MG IV (01:24)
[2022-08-05 03:30] VITALS: BP 144/78; PULSE 74; RESP 17; TEMP 36.4; O2SAT 94
[2022-08-05 04:22] VITALS: RESP 16
[2022-08-05] MEDS: oxyCODONE 5 mg IR Tab/Cap PO (04:22)
[2022-08-05] MEDS: metoprolol tartrate 50 mg Tablet 100 MG PO (05:36)
[2022-08-05] MEDS: sodium chloride 0.9% 1,000 ML 80 ML IV (05:36)
[2022-08-05 07:30] VITALS: BP 149/81; PULSE 58; RESP 18; TEMP 36.5; O2SAT 94
--- NOTE | 2022-08-05 08:09 | P.DS_ITS ---
Discharge Providers Date of Admission: 08/04/22 13:32 Date of Discharge: August 05, 2022 Attending Provider at Admission: Monroe Morfin MD Attending Provider at Discharge: Monroe Morfin MD Primary Care Provider: BLANCO Ojeda Diagnoses at Discharge Discharge Diagnosis (1) Status post replacement of right shoulder joint: Status: Acute Reason for Visit Reason for Visit: M19.011 Brief History: Mohinder is a 57-year-old male with chronic right shoulder pain attributable to osteoarthritis. He failed medications and injections. He did well with a previous left total shoulder was admitted for elective right total shoulder arthroplasty Hospital Course Hospital Course The patient tolerated surgery well. They remained hemodynamically stable. They was begun on aspirin and foot pump for DVT prophylaxis. Occupational therapy was initiated beginning the day of surgery. As the pain was adequately controlled and they were fully mobile they were discharged home on the first postoperative day. Physical Exam Narrative: On the day of discharge the patient's dressing was clean and dry. The patient's would fire his deltoid and their biceps. No distal neurovascular deficits were noted. Discharge Data Studies Completed and Pending Completed Studies During Hospitalization Category Date Time Status XR shoulder RT min 2V* [id number] Routine Exams 08/04/22 13:22 Completed Radiology Impressions Shoulder X-Ray 08/04/22 13:22 IMPRESSION: Right total shoulder arthroplasty without abnormality. Laboratory Results WBC 4.9 10^3/uL (4.0-10.0) 07/25/22 10:40 RBC 4.53 10^6/uL (4.1-5.3) 07/25/22 10:40 Hgb 13.3 g/dL (11.7-16.6) 07/25/22 10:40 Hct 40.3 % (42.0-52.0) L 07/25/22 10:40 MCV 89.0 fl (80-94) 07/25/22 10:40 MCH 29.4 pg (28.0-34.0) 07/25/22 10:40 MCHC 33.0 g/dL (30.0-36.0) 07/25/22 10:40 RDW 12.1 % (12.1-15.1) 07/25/22 10:40 Plt Count 218 10^3/cmm (130-400) 07/25/22 10:40 MPV 10.8 fL (7.4-10.4) H 07/25/22 10:40 Neut % (Auto) 56.5 % 07/25/22 10:40 Lymph % (Auto) 27.5 % 07/25/22 10:40 Hardeman % (Auto) 9.3 % 07/25/22 10:40 Eos % (Auto) 5.7 % 07/25/22 10:40 Baso % (Auto) 0.8 % 07/25/22 10:40 Neut # (Auto) 2.79 10^3/uL (1.8-7.7) 07/25/22 10:40 Lymph # (Auto) 1.4 10^3/uL (0.8-4.8) 07/25/22 10:40 Hardeman # (Auto) 0.5 10^3/uL (0.2-0.9) 07/25/22 10:40 Eos # (Auto) 0.3 10^3/uL (0.0-0.8) 07/25/22 10:40 Baso # (Auto) 0.0 10^3/uL (0.0-0.1) 07/25/22 10:40 Nucleated RBC % (auto) 0 % 07/25/22 10:40 Nucleated RBCs # 0.0 /100WBC 07/25/22 10:40 Sodium 140 mmol/L (136-145) 07/25/22 10:40 Potassium 3.8 mmol/L (3.5-5.1) 07/25/22 10:40 Chloride 101 mmol/L (98-107) 07/25/22 10:40 Carbon Dioxide 29 mmol/L (22-29) 07/25/22 10:40 Anion Gap 13.8 (5-19) 07/25/22 10:40 BUN 11 mg/dL (6-20) 07/25/22 10:40 Creatinine 0.7 mg/dL (0.7-1.2) 07/25/22 10:40 GFR Calculation 115.4 mL/min (90-130) 07/25/22 10:40 Glucose 88 mg/dL (65-115) 07/25/22 10:40 Calculated Osmolality 289 mOsm/kg (285-295) 07/25/22 10:40 Calcium 9.1 mg/dL (8.5-10.5) 07/25/22 10:40 Total Bilirubin 0.7 mg/dL (0.15-1.2) 07/25/22 10:40 AST 23 U/L (0-40) 07/25/22 10:40 ALT 19 U/L (0-41) 07/25/22 10:40 Alkaline Phosphatase 81 U/L (40-130) 07/25/22 10:40 Total Protein 6.5 g/dL (6.6-8.7) L 07/25/22 10:40 Albumin 4.4 g/dL (3.5-5.2) 07/25/22 10:40 Globulin 2.1 g/dL (1.3-4.6) 07/25/22 10:40 Urine Color Yellow (Yellow) 07/25/22 10:40 Urine Appearance Clear (CLEAR) 07/25/22 10:40 Urine pH 6 (5-7) 07/25/22 10:40 Ur Specific [place] 1.005 (1.005-1.030) 07/25/22 10:40 Urine Protein Neg (Negative) 07/25/22 10:40 Urine Glucose (UA) Norm (Normal) 07/25/22 10:40 Urine Ketones Negative (Negative) 07/25/22 10:40 Urine Blood Neg (Negative) 07/25/22 10:40 Urine Nitrate Negative (Negative) 07/25/22 10:40 Urine Bilirubin Neg (Negative) 07/25/22 10:40 Urine Urobilinogen Neg mg/dL (Negative) 07/25/22 10:40 Ur Leukocyte Esterase Negative (Negative) 07/25/22 10:40 Vitals Last Vital Signs Temp 97.7 F 08/05/22 07:30 Pulse 58 L 08/05/22 07:30 Resp 18 08/05/22 07:30 BP 149/81 08/05/22 07:30 Pulse Ox 94 08/05/22 07:30 O2 Del Method Nasal Cannula 08/05/22 07:30 O2 Flow Rate 3 08/04/22 20:31 Discharge Plan Discharge Patient Disposition: Home Condition: Stable Prescriptions: New oxycodone 5 mg Tablet 5 mg PO Q4H PRN (Reason: Moderate Pain) 7 Days Qty: 40 0RF aspirin 325 mg Tablet,Delayed Release (Dr/Ec) 325 mg PO DAILY 30 Days Qty: 30 0RF celecoxib 200 mg Capsule 200 mg PO Q12H 14 Days Qty: 28 0RF gabapentin 300 mg Capsule 300 mg PO BID 7 Days Qty: 14 0RF acetaminophen 500 mg Tablet 1,000 mg PO Q8H 14 Days Qty: 84 0RF Continued meloxicam 15 mg tablet 15 mg PO DAILY Lexapro 20 mg tablet 20 mg PO DAILY 30 Days Qty: 30 4RF metoprolol tartrate 100 mg tablet 150 mg PO DIRECTED Qty: 135 1RF Rx Instructions: 100mg (1 tab) in AM & 50mg (0.5 tab) in PM amlodipine 5 mg tablet 10 mg PO DAILY Qty: 90 1RF lisinopril-hydrochlorothiazide 20-25 mg tablet 1 tab PO DAILY Qty: 90 1RF rosuvastatin 20 mg tablet 20 mg PO .HS Qty: 90 1RF isosorbide mononitrate 60 mg tablet extended release 24 hr 60 mg PO DAILY Qty: 90 1RF cetirizine [Zyrtec] 10 mg Tablet 10 mg PO DAILY famotidine 20 mg Tablet 20 mg PO DAILY diphenhydramine-acetaminophen [Tylenol PM Extra Strength] 25-500 mg Tablet 1 tab PO BEDTIME diclofenac sodium 1 % gel 2 g TOPICAL QID Discharge Orders: Discharge Order (Routine); Ordered 08/05/22 Ordered By: Monroe Morfin Referrals: Monroe Morfin MD [Physician] - 08/19/22 2:45 pm Discharge Diet: Advance as tolerated Discharge Activity: Limit activity as instructed Patient Instructions: Opioid Safety Activity Restrictions/Additional Instructions: Okay to shower. No soaking incision in tub Apply FirstIce up to 20 min/hr for pain and swelling Take Neurontin 300 mg for 7 days as instructed Take Celebrex twice a day for the next 15 days for pain , discontinue other anti-inflammatories Take Tylenol 500mg (up to 2 tabs) 3 times a day for mild pain take oxycodone for breakthrough pain. Exercises per Occupational Therapy IF HAVE ANY PROBLEMS OR QUESTIONS CALL [facility] AT AND ASK TO HAVE DR. JALEESA ALCANTAR. Discharge Attestations Time Spent in Discharge Care*: other Quality Metrics Clinical Quality Measures [ No reported AMI, CVA or VTE this stay] Coding Level of Care Code Acute Code for Chg Fwd Diagnoses Status post replacement of right shoulder joint Z96.611
[2022-08-05] MEDS: lisinopril 20 mg Tablet PO (09:47)
[2022-08-05] MEDS: amlodipine 10 mg Tablet PO (09:48)
[2022-08-05] MEDS: escitalopram 10 mg Tablet 20 MG PO (09:48)
[2022-08-05] MEDS: famotidine 20 mg Tablet PO (09:49)
[2022-08-05] MEDS: gabapentin 300 mg Capsule PO (09:49)
[2022-08-05] MEDS: isosorbide mononitrate ER 60 mg Tablet PO (09:49)
[2022-08-05] MEDS: hydroCHLOROthiazide 25 mg Tablet PO (09:49)
[2022-08-05] MEDS: CELEcoxib 200 mg Capsule PO (09:50)
[2022-08-05 10:24] VITALS: BP 149/81; PULSE 58; RESP 18; TEMP 36.5; O2SAT 94
== END 2022-08-05 10:25 | disposition home or self-care (01) ==
LOC: MEDSURG 13:33
PROVIDERS: Admitting Provider Orthopaedic Surgery; PCP Nurse Practitioner Family; Visit Provider Orthopaedic Surgery
PROC: (CPT 23472; principal; 2022-08-04 09:20)
DX: M19.011 Primary osteoarthritis, right shoulder (principal); F17.220 Nicotine dependence, chewing tobacco, uncomplicated; I10 Essential (primary) hypertension; I25.2 Old myocardial infarction; E78.5 Hyperlipidemia, unspecified; F41.1 Generalized anxiety disorder
CPT/HCPCS: 23472; 73030; 80053; 81003; 85025; 97110; 97167; C1713; C1776; G0378; J0171; J0330; J0461; J0690; J1100; J1580; J2250; J2405; J2704; J2710; J2795; J3010; J3490; J3535; J7030

== ENCOUNTER → 2022-08-20 08:50 | Outpatient (BNVA) | payer BC, MEDICAID, SELFPAY | PROVIDERS: PCP Nurse Practitioner Family; Visit Provider Nurse Practitioner Family | DX: Z96.611 Presence of right artificial shoulder joint (principal) | CPT/HCPCS: 73030 ==

== ENCOUNTER → 2022-09-17 09:40 | Outpatient (BNVA) | payer BC, MEDICAID, SELFPAY | PROVIDERS: PCP Nurse Practitioner Family; Visit Provider Nurse Practitioner Family | DX: Z96.611 Presence of right artificial shoulder joint (principal) | CPT/HCPCS: 73030 ==

== ENCOUNTER → 2022-10-22 15:06 | Outpatient (BNVA) | payer BC, MEDICAID, SELFPAY | PROVIDERS: PCP Nurse Practitioner Family; Visit Provider Nurse Practitioner Family | DX: I10 Essential (primary) hypertension (principal); R00.1 Bradycardia, unspecified; I20.8 Other forms of angina pectoris; I25.2 Old myocardial infarction | CPT/HCPCS: 36415; 80048; 83880; 93005 ==

== ENCOUNTER 2022-11-19 07:02 | Outpatient (CLI) | payer BC, MEDICAID, SELFPAY ==
--- NOTE | 2022-11-19 | ECG_ITS ---
[facility] Test Date: 2022-11-19 Pat Name: Mohinder Presley Department: Room: Gender: Male Assistant Director Of Public Works: Natan Aguayo : 1965 Requested By: Margarita Gómez Order Number: [id number] Toni MD: Joyce Hill M.D. Interpretive Statements NAME OF STUDY: LEXISCAN SESTAMIBI STRESS TEST INDICATION: Chest Pain, PROCEDURE: At the baseline, the EKG revealed sinus bradycardia with a poor R wave progression. The baseline heart was 52 bpm with a blood pressue of 147/81 mm of Hg Lexiscan was infused over a period of 20 seconds. A total of 0.4 milligrams of Lexiscan was infused. The stress phase was continued for a total of 5 minutes. Heart rate at the end of the stress phase was 62 bpm with a blood pressure 127/77 mm of Hg. The EKG at the peak infusion revealed no significant changes. Sestamibi was injected 20 seconds after the Lexiscan infusion. Heart rate at the end of the recovery phase was 61 bpm with a blood pressure of 125/78 mm of Hg. CONCLUSION: 1. No significant EKG changes with the LexiScan infusion 2. No LexiScan induced chest pain or cardiac arrhythmia 3. Normal blood pressure and heart rate response 4. Sestamibi/sestamibi perfusion scan pending; see separate report. Electronically Signed On 11-20-2022 23:53:57 CDT by Joyce Hill M.D. [email or web address]
[2022-11-19 07:29] VITALS: BMI 37.7
--- NOTE | 2022-11-19 07:33 | NMCV_ITS ---
NM reilly perf SPECT r/s* [id number] Mohinder Presley Age: 57 Gender: M : 1965 Exam Date: 11/19/2022 08:12 Ordering Phys: Margarita Gómez Technologist: CORI Childress Exam Location: [facility] Indications: HYPERTENSION, ANGINA PECTORIS STRESS TEST Please see separate stress test report in [facility] for full findings IMAGE PROTOCOL Rest/Stress 1 Lexiscan Day Radiopharmaceutical Dose (mCi) Administration Site Administered by Rest: Tc-99m 10.7 IV CORI Batista Sestamibi Stress:Tc-99m 32.5 IV CORI Batista Sestamibi Rest: 19-Nov-2022 60 Discovery 630 Stress: 19-Nov-2022 30 Discovery 630 0.4mg Lexiscan. Images obtained in supine and prone position. SPECT RESULTS Technical Quality: Excellent Raw Data Analysis: Normal Image Corrections: No attenuation or motion correction applied Summed Stress Score: 3 Summed Rest Score: 5 Summed Difference Score: 0 PERFUSION FINDINGS Small area of minimal to moderately decreased tracer uptake in the mid and apical inferior wall region with no significant reversibility FUNCTIONAL RESULTS (calculated via Gated SPECT) Stress Image LV EF (%): 61 Stress EDV (mL):161 TID: 0.8 Stress ESV (mL):63 FUNCTIONAL FINDINGS: Segmental wall motion analysis revealing no gross wall motion abnormalities IMPRESSIONS 1. Myocardial perfusion imaging revealing small area of minimal to moderately decreased persistent tracer uptake in the mid and apical inferior wall region suggesting myocardial scarring versus attenuation artifact. 2. Normal LV ejection fraction of 61%. 3. LV wall motion analysis revealing no gross wall motion abnormalities. 4. Normal LV volume Low probability for coronary ischemia, based on the above findings No similar previous studies are available for comparison Dr Joyce Hill MD FAC (Electronically Signed) Final Date: 19 November 2022 14:15 S
[2022-11-19] MEDS: regadenoson 0.4 Mg/5 ml Syringe IVP (08:54)
[2022-11-19 09:08] VITALS: BP 125/77; PULSE 63
== END 2022-11-19 07:03 | disposition home or self-care (01) ==
LOC: CDL 07:03
PROVIDERS: PCP Nurse Practitioner Family; Visit Provider Nurse Practitioner Family
DX: I10 Essential (primary) hypertension (principal); I20.8 Other forms of angina pectoris
CPT/HCPCS: 36415; 78452; 93017; 96374; A9500; J2785

== ENCOUNTER → 2023-01-27 08:12 | Outpatient (BNVA) | payer BC, MEDICAID, SELFPAY | PROVIDERS: PCP Nurse Practitioner Family; Visit Provider Physician Assistant | DX: Z96.611 Presence of right artificial shoulder joint (principal); S83.005A Unspecified dislocation of left patella, initial encounter; X58.XXXA Exposure to other specified factors, initial encounter | CPT/HCPCS: 73030; 73560; 73565 ==

== ENCOUNTER 2023-01-30 06:59 | Outpatient (CLI) | payer BC, MEDICAID, SELFPAY ==
--- NOTE | 2023-01-30 07:30 | US_ITS ---
WS: [id number] ULTRASOUND SOFT TISSUES LEFT knee/patellar tendon. HISTORY: left knee pain, status post arthroplasty, new injury. COMPARISON: Radiographs 01/27/2023 TECHNIQUE: 2-D and color Doppler imaging is submitted. The patellar tendon is intact. The tendon is identified from the distal patella to the anterior tibia . There is no fluid surrounding the patella or within the patellar tendon. There is fluid deep to the patellar tendon and greatest medially. Although the medial patellar retina culum is difficult to visualize normally by ultrasound there is a large amount of edema in the expect ed location of the medial patellar retinaculum. An intact medial patellar retinaculum was not visuali zed and there is a gap close to the patella. IMPRESSION: 1. Intact LEFT patellar tendon. 2. Large amount of edema along the course of the medial patellar retinaculum. There is a focal gap almendarez ggested a tear of the medial patellar retinaculum. 3. Increased fluid deep to the medial patellar retinaculum.
== END 2023-01-30 07:00 | disposition home or self-care (01) ==
LOC: RAD 06:59
PROVIDERS: PCP Nurse Practitioner Family; Visit Provider Physician Assistant
DX: S83.095A Other dislocation of left patella, initial encounter (principal); M25.562 Pain in left knee; X58.XXXA Exposure to other specified factors, initial encounter; Y93.9 Activity, unspecified; Y92.9 Unspecified place or not applicable; Y99.9 Unspecified external cause status
CPT/HCPCS: 76882

== ENCOUNTER 2023-02-19 08:36 | Outpatient (CLI) | payer BC, SELFPAY ==
--- NOTE | 2023-02-19 09:00 | CTR_ITS ---
PROCEDURE INFORMATION: Exam: CT Left Lower Extremity Without Contrast, Knee Exam date and time: 02/19/2023 9:10 AM Age: 57 years old Clinical indication: Prior surgery; Surgery date: 6+ months; Surgery type: Bilat knee; Patient HX: Left knee pain patella region since May, felt a pop in mar, patella going to the lateral aspect since May TECHNIQUE: Imaging protocol: CT of the left lower extremity without contrast was performed. Exam focused on the knee. Radiation optimization: All CT scans at this facility use at least one of these dose optimization techniques: automated exposure control; mA and/or kV adjustment per patient size (includes targeted exams where dose is matched to clinical indication); or iterative reconstruction. REPORTING DATA: Count of CT and Cardiac NM exams in prior 12 months: This patient has received 3 known CTs and 0 known cardiac nuclear medicine studies in the 12 months prior to the current study. COMPARISON: CT knee LT JHONNY [id number] 04/11/2022 7:11 AM RADIATION DOSE METRICS: Total DLP (mGy-cm): 538.97 FINDINGS: Bones/joints: Probable injury of the medial patellofemoral retinaculum. Mild lateral subluxation of the patella. No acute fracture or hardware complication is seen. Patella baja; correlate for quadriceps dysfunction. Moderate joint effusion with thick peripheral rim. If clinically concern for septic arthritis, recommend joint aspiration. A knee arthroplasty appears situated in anatomic alignment. Soft tissues: There is scarring involving the ventral subcutaneous tissues. CT/CT knee LT wo con* [id number] IMPRESSION: 1. A knee arthroplasty is seen. No acute fracture or hardware complication is seen. 2. Probable injury of the medial patellofemoral retinaculum. 3. Mild lateral subluxation of the patella. 4. Patella baja; correlate for quadriceps dysfunction. 5. Moderate joint effusion with thick peripheral rim. If clinically concern for septic arthritis, recommend joint aspiration.
== END 2023-02-19 08:37 | disposition home or self-care (01) ==
LOC: RAD 08:36
PROVIDERS: PCP Nurse Practitioner Family; Visit Provider Physician Assistant
DX: S83.012A Lateral subluxation of left patella, initial encounter (principal); Z96.652 Presence of left artificial knee joint; S83.006A Unspecified dislocation of unspecified patella, initial encounter; X58.XXXA Exposure to other specified factors, initial encounter; M25.462 Effusion, left knee
CPT/HCPCS: 73700

== ENCOUNTER → 2023-03-05 11:04 | Outpatient (BNVA) | payer BC, MEDICAID, SELFPAY | PROVIDERS: PCP Nurse Practitioner Family; Visit Provider Physician Assistant | DX: G56.01 Carpal tunnel syndrome, right upper limb; G56.21 Lesion of ulnar nerve, right upper limb | CPT/HCPCS: 73130 ==

== ENCOUNTER → 2023-04-08 09:42 | Outpatient (BNVA) | payer BC, MEDICAID, SELFPAY | PROVIDERS: PCP Nurse Practitioner Family; Visit Provider Family Medicine | DX: Z01.818 Encounter for other preprocedural examination (principal); Z79.899 Other long term (current) drug therapy | CPT/HCPCS: 80053; 81003; 85025 ==

== ENCOUNTER 2023-04-24 15:02 | Observation (INO) | payer BC, MEDICAID, SELFPAY ==
[2023-04-24] VITALS (18 sets, daily range): BP systolic 119–152; BP diastolic 65–85; PULSE 56–78; RESP 16–20; TEMP 36.4–37; O2SAT 90–96; BMI 37.5
[2023-04-24] MEDS: ketorolac 30 mg/mL INJ IVP (11:29)
[2023-04-24] MEDS: lactated ringers 500 ML IV (11:29)
[2023-04-24] MEDS: acetaminophen 1,000 MG/100 ML PIGGYBACK 400 MG IV ×2 (11:30→17:31)
[2023-04-24] MEDS: scopolamine 1.5 Patch 1 PATCH TRANSDERMA (11:32)
[2023-04-24 12:09] LABS: Basophils % 0.8 %; Eosinophils # 0.2 10^3/uL (0.0-0.8); Eosinophils % 3.5 %; Hematocrit 44.2 % (37-53); Lymphocytes # 1.2 10^3/uL (0.8-4.8); Lymphocytes % 25.1 %; Mean Corpuscular Volume 90.8 fl (82-101); Mean Platelet Volume 12.4 fL (7.4-10.4); Monocytes # 0.4 10^3/uL (0.2-0.9); Monocytes % 8.6 %; Neutrophils # 3.03 10^3/uL (1.8-7.7); Neutrophils % 61.6 %; Nucleated Red Blood Cells % 0 %; Platelet Count 174 10^3/cmm (157-399); Red Blood Count 4.87 10^6/uL (3.85-5.65); Red Cell Distribution Width 12.5 % (12.1-15.1); White Blood Count 4.91 10^3/uL (3.29-11.43)
[2023-04-24] MEDS: sodium chloride 0.9% 1,000 ML 30 ML IV (12:13)
[2023-04-24 12:18] LABS: Blood Urea Nitrogen 13 mg/dL (6-20); Calcium 9.1 mg/dL (8.5-10.5); Carbon Dioxide 29 mmol/L (22-29); Chloride 102 mmol/L (98-107); Creatinine Clr Calc Pharmacy 120.7333; Glomerular Filtration Rate 98.9 mL/min (90-130); Glucose 87 mg/dL (65-115); Osmolality Calculated 287 mOsm/kg (285-295); Sodium 139 mmol/L (136-145)
--- NOTE | 2023-04-24 12:33 | W.PM.OPSFHP ---
Same Day Surgery H&P Indication for Procedure/HPI DATE OF PROCEDURE: April 24, 2023 CHIEF COMPLAINT/INDICATIONFOR SURGICAL PROCEDURE: Left knee patellar instability and pain PREOP DIAGNOSIS: Left knee patellar instability and pain status post left total knee arthrop PLANNED PROCEDURE: Operation Date: 04/24/23 12:30 Proposed Procedures p Patella Resurfacing(Left) - Luc Valencia DO s Retinaculum Repair Medial Retinaculum Repair(Left) - Luc Valencia DO Medications/Allergies* Home Medications Medication Instructions Recorded Confirmed Type cetirizine 10 mg tablet (Zyrtec) 10 mg PO DAILY 10/07/21 04/24/23 History meloxicam 15 mg tablet 15 mg PO DAILY 11/18/21 04/24/23 History famotidine 20 mg tablet 20 mg PO DAILY 04/11/22 04/24/23 History diphenhydramine 25 1 tab PO BEDTIME 07/25/22 04/24/23 History mg-acetaminophen 500 mg tablet (Tylenol PM Extra Strength) diclofenac sodium 1 % topical gel 2 g topical QID PRN rasg 10/22/22 04/24/23 History Allergies/Adverse Reactions Allergy/AdvReac Type Severity Reaction Status Date / Time No Known Allergies Allergy Verified 04/24/23 10:59 Current Medications: Generic Name Dose Route Start Last Admin Trade Name Freq PRN Reason Stop Dose Admin Sodium Chloride 1,000 mls @ 30 mls/hr 04/24/23 11:00 04/24/23 12:13 Sodium Chloride 0.9% IV 04/25/23 10:59 30 mls/hr .Q24H TAMIKO Administration Pertinent History/Comorbid Conditions* Medical History (Updated 04/01/23 @ 00:09 by Luc Valencia DO) History of [place] (myocardial infarction) HTN (hypertension) Hyperlipidemia Primary osteoarthritis, left shoulder left total shoulder arthroplasty DOS: 02/07/[address] Morfin TERESA (generalized anxiety disorder) MDD (major depressive disorder) Psychiatric care Surgical History (Updated 08/04/22 @ 13:20 by Monroe Morfin MD) S/P total knee arthroplasty S/P knee replacement History of ankle surgery Status post reverse total arthroplasty of left shoulder Family History (Updated 07/10/22 @ 07:21 by Mercedes Rushing RN) Diabetes Grandmother Heart disease Mother Father Cancer Grandmother Hypertension Grandmother Social History Smoking and tobacco/nicotine status: never used tobacco/nicotine Alcohol intake: never Pertinent Exam Findings alert, oriented x 3, operative site marked and procedure specific exam findings Left knee-anterior incision from previous surgery is well-healed no signs of infection mild palpable joint effusion soft tissue defect noted medially with the disruption of retinaculum. He is able to perform a straight leg raise but there is apprehension on extension as well as flexion at end ranges with concern for subluxation. When in extension there is hypermobility of the patella unable to laterally sublux near almost dislocate translation 3+ quadrants. Patient does have pain with resisted extension. Tenderness over medial aspect of patella and patella is laying laterally. ROM 0-120 degrees Stable varus valgus stress Recommendations Surgery/Procedure today Other Plans: Plan to proceed to the OR today with a left knee patellar resurfacing and medial retinaculum repair as well as possible reconstruction. Patient understands incidence procedure the risk benefits complication alternatives with surgery elects proceed with surgical intervention all questions answered. Coding Level of Care Code Acute Code for Dulce Shaver
[2023-04-24 12:50] LABS: Slide Review Slide Review Perform
[2023-04-24] MEDS: ceFAZolin 2,000 MG in sodium chloride 0.9% (plus) 50 ML 100 MG IV ×2 (12:58→20:14)
[2023-04-24 13:13] LABS: Anion Gap 12.1 (5-19); Potassium 4.1 mmol/L (3.5-5.1)
--- NOTE | 2023-04-24 13:17 | ANES.PREANE2 ---
Pre-Anesthetic Assessment Height/Weight: Height 1.73 m Weight 112.037 kg Temp Pulse Resp BP Pulse Ox O2 Del Method 97.5 F L 56 L 18 152/79 95 Room Air 04/24/23 11:05 04/24/23 11:05 04/24/23 11:05 04/24/23 11:05 04/24/23 11:05 04/24/23 11:05 Preop Diagnosis: Left knee patellar instability and pain status post left total knee arthrop Operation Date: 04/24/23 12:30 Proposed Procedures p Patella Resurfacing(Left) - Luc Valencia DO s Retinaculum Repair Medial Retinaculum Repair(Left) - Luc Valencia DO Familial anesthetic complications: None Last intake: Intake Last Liquid Date 04/23/23 Last Liquid Time 21:00 Last Solid Date 04/23/23 Last Solid Time 19:00 Social Tobacco (chews) and No alcohol Exam alert, oriented x 3, clear to auscultation bilaterally and regular rate & rhythm Airway Mallampati: Class II Dentition: false Pulmonary Sleep Apnea CV/HEM Arrythmia (bradycardia), Coronary Artery Disease, Hypertension and Myocardial Infarction Anesthetic Plan ASA status: 3 Anesthesia: General and Regional (specify below) Other: Adductor canal block for post-op pain per surgeon request Risk of > 500 ml blood loss (7ml/kg in children): No Medications/Allergies Home Medications Medication Instructions Recorded Confirmed Last Taken Type cetirizine 10 mg tablet (Zyrtec) 10 mg PO DAILY 10/07/21 04/24/23 04/23/23 History meloxicam 15 mg tablet 15 mg PO DAILY 11/18/21 04/24/23 04/23/23 History famotidine 20 mg tablet 20 mg PO DAILY 04/11/22 04/24/23 04/24/23 History amlodipine 5 mg tablet 10 mg (2 x 5 mg) PO DAILY #90 tabs 07/10/22 04/24/23 04/24/23 Rx rosuvastatin 20 mg tablet 20 mg PO .HS #90 tabs 07/10/22 04/24/23 04/23/23 Rx diphenhydramine 25 1 tab PO BEDTIME 07/25/22 04/24/23 04/23/23 History mg-acetaminophen 500 mg tablet (Tylenol PM Extra Strength) diclofenac sodium 1 % topical gel 2 g topical QID PRN rasg 10/22/22 04/24/23 Unknown History hydrochlorothiazide 25 mg tablet 25 mg PO DAILY PRN swelling #30 11/06/22 04/24/23 04/23/23 Rx tabs isosorbide mononitrate 60 mg 60 mg PO BID #180 tabs 11/06/22 04/24/23 04/24/23 Rx tablet,extended release 24 hr nitroglycerin 0.4 mg sublingual 0.4 mg sublingual Q5M PRN chest 11/06/22 04/24/23 Unknown Rx tablet pain #25 tabs potassium chloride 8 mEq 8 meq PO DAILY PRN with HCTZ #30 11/06/22 04/24/23 Unknown Rx capsule,extended release caps patellar tracking knee brace left #1 ea 01/27/23 03/12/23 Unknown Rx metoprolol tartrate 25 mg tablet 25 mg PO BID #180 tabs 02/05/23 04/24/23 04/24/23 Rx bupropion HCl 75 mg tablet See Rx Instructions .Route 03/04/23 04/24/23 04/24/23 Rx .COMPLEX #30 tabs escitalopram oxalate 20 mg tablet 20 mg PO DAILY 30 days #30 tabs 03/04/23 04/24/23 04/24/23 Rx (Lexapro) lisinopril 20 1 tab PO DAILY #90 tabs 03/09/23 04/24/23 04/23/23 Rx mg-hydrochlorothiazide 25 mg tablet Allergies Allergy/AdvReac Type Severity Reaction Status Date / Time No Known Allergies Allergy Verified 04/24/23 10:59 Current Medications Generic Name Dose Route Start Last Admin Trade Name Freq PRN Reason Stop Dose Admin Sodium Chloride 1,000 mls @ 30 mls/hr 04/24/23 11:00 04/24/23 12:13 Sodium Chloride 0.9% IV 04/25/23 10:59 30 mls/hr .Q24H TAMIKO Administration PFSH Anesthesia Medical History History of [place] (myocardial infarction) HTN (hypertension) Hyperlipidemia Primary osteoarthritis, left shoulder left total shoulder arthroplasty DOS: 02/07/[address] Morfin TERESA (generalized anxiety disorder) MDD (major depressive disorder) Psychiatric care Surgical History S/P total knee arthroplasty S/P knee replacement History of ankle surgery Status post reverse total arthroplasty of left shoulder Family History Mother Heart disease Father Heart disease Grandmother Diabetes Hypertension Cancer Social History Smoking and tobacco/nicotine status: never used tobacco/nicotine Alcohol intake: never Data Anesthesia 04/24/23 11:21 04/24/23 11:21 Short CBC 04/24/23 Range/Units 11:21 WBC 4.91 (3.29-11.43) 10^3/uL Hgb 14.60 (11.27-16.99) g/dL Hct 44.2 (37-53) % MCV 90.8 (82-101) fl Plt Count 174 (157-399) 10^3/cmm Neut % (Auto) 61.6 % Neut # (Auto) 3.03 (1.8-7.7) 10^3/uL BMP 04/24/23 11:21 Sodium 139 Potassium 4.1 Chloride 102 Carbon Dioxide 29 BUN 13 Creatinine 0.8 Glucose 87 Calcium 9.1 Blood Bank 04/24/23 11:53 Blood Type O Positive Rho(D) Type Rh positive Antibody Screen Negative Cardiac Studies: Sestamibi Stress Test (Cardiology) 11/19/22 Cardiac Event Monitor 10/22/22
[2023-04-24] MEDS: tranexamic acid 1,000 mg/10mL SDV 1000 MG IV (13:25)
[2023-04-24] MEDS: EPINEPHrine 1 mg/mL INJ XX (14:02)
[2023-04-24] MEDS: tranexamic acid 1,000 mg/10mL SDV 1000 MG XX (14:02)
[2023-04-24] MEDS: ROPivacaine 0.2% Premix 100 mL 200 MG INTRA-ARTI (14:02)
[2023-04-24] MEDS: ketorolac 30 mg/mL INJ XX (14:02)
[2023-04-24] MEDS: vancomycin 1,000 MG SDV 2000 MG INTRA-ARTI (14:20)
--- NOTE | 2023-04-24 15:23 | P.BOP_ITS ---
Date of Procedure: 04/24/2023 Surgeon: Luc Valencia DO Security Strategist(s): Arnoldo Valencia PA-C Procedure(s) performed: Left knee patella joint resurfacing with patella poly button Left knee medial retinacular repair Left knee extensive synovectomy Left total joint arthroplasty poly exchange Findings of the procedure(s): Patient was found to have clear synovial fluid with a redundant and previously torn medial retinaculum. Patient had an unstable patella noted. With severe patellar arthritis. At this point in time patient then subsequently underwent a patellar resurfacing with a standard poly button to resurface the patella. It was noted intraoperatively that patient did have a little more play with varus valgus stress and as result the old poly was subsequently removed and a new 1 mm thicker poly was then placed and had excellent fixation. At this point in time I then given this was a reopening of a total joint arthroplasty performed a standard diluted Betadine soak for 5 minutes and then thoroughly irrigation of 6 L of normal saline. Button was then placed and then subsequently performed my medial retinacular repair with augmentation of hernia mesh this was found to have appropriate patellar tracking intraoperatively. Vancomycin powder was placed in the wound for infection prophylaxis. Patient then closed and placed in full extension will be locked in full extension with a plan for roughly 3 weeks can weight-bear as tolerated with brace locked in full extension. Will be admitted to the floor postoperatively to work with therapy and plan for discharge tomorrow. Estimated blood loss: 50 mL Specimen(s) removed: Patellar bone cuts removed, synovial fluid was clear yellow and normal-appearing and cultures were subsequently taken Post-operative diagnosis: Left knee patellar instability status post patellar dislocation status post left total knee arthroplasty,
--- NOTE | 2023-04-24 15:33 | XRR_ITS ---
PROCEDURE INFORMATION: Exam: XR Left Knee Exam date and time: 04/24/2023 3:57 PM Age: 57 years old Clinical indication: Device placement; Joint replacement hardware; Prior surgery; Surgery date: 6+ months; Surgery type: Total knee; Patient HX: Post L tka replacement; Done in pacu; Brace on per Dr request; Additional info: Post L tka, do in pacu TECHNIQUE: Imaging protocol: Radiologic exam of the left knee. Views: 1 or 2 views. COMPARISON: 1. CT knee LT wo con* [id number] 02/19/2023 9:10 AM 2. CR XR knees AP WB w LT lmt ORTH 01/27/2023 9:04 AM FINDINGS: Tubes, catheters and devices: External brace in place. Bones/joints: Left knee arthroplasty with intact hardware and adequate alignment. No evidence of hardware complication. No acute fracture or dislocation. Soft tissues: Regional soft tissue swelling and air lucency expected in the postoperative setting. XR/XR knee LT 1-2V [id number] IMPRESSION: 1. Status post left knee surgery. 2. Left knee arthroplasty without evidence of hardware complication or acute bony abnormality.
--- NOTE | 2023-04-24 15:34 | P.OP_ITS ---
Operative Report Date of procedure: April 24, 2023 Pre-op diagnosis: Left knee patellar instability status post left total knee arthroplasty Post-op diagnosis: same (With medial retinaculum tear, left total knee arthroplasty instability poly, implant stable) Post-op findings: See operative note Procedure done: Left knee patella joint resurfacing with patella poly button Left knee medial retinacular repair Left knee extensive synovectomy Left total joint arthroplasty poly exchange Implants: Handy triathlon tibia size 6 x 10 mm poly Strathmore triathlon asymmetric patella a 32 mm Specimens removed/disposition: Aerobic and anaerobic cultures taken of the synovial fluid x 2 Surgeon: Luc Valencia DO Electron Beam Photo Mask Technician: Arnoldo Valencia PA-C: PA was necessary for assistance in this case with leg positioning retraction and protection of neurovascular structures as well as assistance in implantation wound closure and dressing application. Anesthesia: General Estimated blood loss (mL): 50 69 minutes IV fluids: 1000 mL Complications: None Findings: See operative report narrative Condition: stable Disposition: observation Brief History: Patient is a 57-year-old gentleman who underwent a left total knee arthroplasty on 04/21/2022 with my previous partner Dr. Morfin. Procedure went as planned without any issues. He was followed in the postoperative course. Patient unfortunately in the postoperative course couple months after the procedure sustained injury to the left knee where he dislocated his kneecap. He has had tracking issues since. We initially evaluated patient just this past January and began to workup his patellar instability. Bracing helped but he continued to have issues and instability and lacking confidence in the knee. He is appropriately worked up the implant was stable with no evidence of instability likely caused from the implant malposition. As a result given the chronicity and that the patella could be resurfaced thought this would help with patient's patellar tracking. As result we talked about his treatment options given this continues to give him ongoing issues and pain with his kneecap not tracking appropriately he elects to proceed with a left knee patella resurfacing with medial retinacular repair given he had a dislocation with retinacular tear. Patient understands the ins and outs procedure the risk benefits complication alternatives with surgery. Through shared decision making patient elects proc eed with surgical intervention. All questions answered at this time. Procedure: Patient was seen evaluate in the preoperative holding area. Consent was reviewed and signed with patient. Correct extremity was then subsequently marked. Patient was then seen evaluated by anesthesia once cleared for surgery was taken back to the operative suite. Patient then transported on the operative table and placed in supine position all bony prominences well-padded patient appropriate secured to the bed. Patient then subsequently underwent anesthesia per the anesthesia apartment. Once properly anesthetized the patient was then had a nonsterile tourniquet applied to the left thigh. Once this was then applied the left lower extremity was then prepped and draped in standard orthopedic fashion. Final timeout performed. Patient received appropriate preoperative antibiotics as well as preoperative TXA. Esmarch tourniquet was used exsanguinate the left lower extremity and tourniquet was insufflated to 250 mmHg. I then subsequently performed a standard midline anterior incision over the previous incision for the total knee replacement. Full-thickness flaps were then subsequently made through subcutaneous tissue. Sharp scalpel excision was used as well as utilize electrocautery to maintain exact hemostasis throughout my dissection. I then subsequently came down directly over the extensor mechanism of the quad tendon was intact proximally however there was excessive redundant tissue over the medial retinaculum with a lateral riding patella noted. This was noted to be hypermobile. But patient did have a quality caliber of tissue that appeared to be attenuated but was subsequently healed. At this point in time I marked out the position and utilizing the previous sutures from the previous total knee replacement utilized and performed a standard medial parapatellar arthrotomy. Normal synovial fluid was noted. Just given this is a previous total knee replacement I then subsequently in standard fashion just performed 2 cultures taken of the synovial fluid and sent for aerobic and anaerobic. All of the tissue was very normal with no evidence of tissue necrosis or any signs of infection. Patient did have lateral riding patella which was noted. At this point in time I utilized electrocautery as well as sharp scalpel excision to perform a standard synovectomy of the joint. This was performed a complete synovectomy. At this point in time just for appropriate mobilization of the patellar tendon I did a standard small medial release of the retinaculum off the tibia to have appropriate visualization. At this point in time I then turned my attention towards the patellar resurfacing. The patella has extensive synovitis around the bone as well as osteophyte formation. This point time performed a standard patellar retinaculum denervation around the bone and had appropriate visualization. I then measured the patella and performed a freehand technique patellar resurfacing to appropriate depth maintaining 16 mm patellar thickness. This was confirmed with measuring device and at this point in time I subsequent ly utilized Buz asymmetric patellar sizing and sized to a 32 mm asymmetric poly. This was then subsequently the drill guides were then clamped into appropriate superior and lateral position with the patella everted to allow for more medial tracking of the patella and subsequently the pegs were then drilled I trialed the poly and had improvement already with the patellar resurfacing and appears would be satisfactory once the medial retinaculum had been repaired. I next then evaluated the stability of the implant the tibia and femur were well- fixed. Next I performed a standard irrigation and debridement of the joint. Given this is a revision surgery of a previous total this was then soaked in diluted Betadine solution for 5 minutes and then thoroughly irrigated with 6 L of normal saline. Once satisfied with irrigation I then proceeded with the procedure. I did perform varus valgus stress and there was an increase in play roughly around 1 mm and as a result elected for an increase in poly thickness. The previous poly was then subsequently removed atraumatically and placed a 1 mm thicker poly of a 10 mm polyethylene which was impacted into appropriate position with appropriate locking of the mechanism and had improvement in varus valgus stability with symmetrical gaps both in extension as well as flexion. At this point in time my cyst and then mixed the cement and then subsequently the final triathlon asymmetric patella 32 mm was then subsequently cemented into place and held until the cement cured. All excess cement was removed warm saline was placed inside the joint to allow the cement to cure. Once cured I then took the patella through range of motion and no patellar instability was noted. I then placed 1 g of vancomycin powder within the joint. At this point in time I then performed my medial retinacular repair this was done with Arthrex #5 suture in interrupted fashion I did this in pants over vest with imbricating the medial retinaculum tissue that had been attenuated or stretched out this allowed for more medialization of the extensor mechanism to allow for better tracking. Once my initial repair of this was performed with Arthrex #5 suture I then took the knee through range of motion to roughly 60 degrees there is no diastases of the repair as well as appropriate tracking was noted. At this point in time I then subsequently reinforced this medial repair with #1 strata fix suture. Then to augment with increase scar tissue formation I utilized hernia mesh this was then cut in appropriate position and then laid over top of the retinacular repair to increase scar tissue formation to augment our repair. This was tied down with 0 Prolene suture. I then subsequently once more irrigated the wound bed with Pulsavac and then subsequently placed final 1g of vancomycin powder above the repair and subcutaneous tissue. Then subsequently closed the incision site in layered fashion with 2 oh STRATAFIX and 3 oh STRATAFIX suture as well as Prineo dressing with glue. I then subsequently placed quinn dressing with appropriate seal. Dressing was then placed ABDs soft roll and a 6 inch Ross wrap. I then placed prior to patient waking up a Liberty brace locked in full extension to protect the repair. Patient was then awake from anesthesia and taken to PACU in stable condition. Patient tolerated procedure without any issues. Disposition: Patient taken to PACU in stable condition recovering well will be admitted to the floor postoperatively for postoperative pain control as well as to work with therapy. Will be allowed weightbearing as tolerated with knee brace locked in full extension we will hold extension for roughly 3 weeks in the postoperative course and then will begin to slowly increase his range of motion. Patient received appropriate pain medication and postoperative antibiotics as well as TXA and DVT prophylaxis postoperatively. Will follow-up with patient in the office in 2 weeks plan for discharge likely tomorrow. Patient understands and agrees with current plan. Questions answered.
--- NOTE | 2023-04-24 16:06 | PM.PACU ---
PACU note Narrative: Patient is a 57-year-old male that just underwent a left patella resurfacing and patella retinaculum repair. Pt transferred to PACU in stable condition. Dressing is dry and hinged locking knee brace in place. pt is awake and alert. pt can wiggle toes and plantarflex and dorsiflex foot. pt able to perform straight leg raise, Femoral nerve intact. Distal pulses are palpable toes are warm and well-perfused. Cap refill is normal and under 2 seconds. Sensation to foot is intact. Pain is controlled. Exam: somnolent, arousable Disposition: admitted
--- NOTE | 2023-04-24 17:19 | P.CONIM_ITS ---
Providers/Reason For Consult 2 Consulting Physician/Specialty*: Orthopedic Reason for Consult*: Management of IV antibiotics, hypertension, anxiety, sleep apnea Attending Physician: Luc Valencia DO Primary Care Provider: BLANCO Ojeda History of Present Illness History of Present Illness Mohinder Presley is a 57 year old male with a past medical history of hypertension, hyperlipidemia , Obstructive sleep apnea, former smoker who presents [facility] for left knee surgery, currently seen postoperatively, alert awake, following all commands no chest pain no shortness of breath, no abdominal pain, he has no complaints Review of Systems 2 Const: Denies: fever(s) Card: Denies: chest pain Resp: Denies: dyspnea GI: Denies: abdominal pain Neuro: Denies: headache(s) Medications/Allergies Home Medications Medication Instructions Recorded Confirmed Last Taken Type cetirizine 10 mg tablet (Zyrtec) 10 mg PO DAILY 10/07/21 04/24/23 04/23/23 History meloxicam 15 mg tablet 15 mg PO DAILY 11/18/21 04/24/23 04/23/23 History famotidine 20 mg tablet 20 mg PO DAILY 04/11/22 04/24/23 04/24/23 History amlodipine 5 mg tablet 10 mg (2 x 5 mg) PO DAILY #90 tabs 07/10/22 04/24/23 04/24/23 Rx rosuvastatin 20 mg tablet 20 mg PO .HS #90 tabs 07/10/22 04/24/23 04/23/23 Rx diphenhydramine 25 1 tab PO BEDTIME 07/25/22 04/24/23 04/23/23 History mg-acetaminophen 500 mg tablet (Tylenol PM Extra Strength) diclofenac sodium 1 % topical gel 2 g topical QID PRN rasg 10/22/22 04/24/23 Unknown History hydrochlorothiazide 25 mg tablet 25 mg PO DAILY PRN swelling #30 11/06/22 04/24/23 04/23/23 Rx tabs isosorbide mononitrate 60 mg 60 mg PO BID #180 tabs 11/06/22 04/24/23 04/24/23 Rx tablet,extended release 24 hr nitroglycerin 0.4 mg sublingual 0.4 mg sublingual Q5M PRN chest 11/06/22 04/24/23 Unknown Rx tablet pain #25 tabs potassium chloride 8 mEq 8 meq PO DAILY PRN with HCTZ #30 11/06/22 04/24/23 Unknown Rx capsule,extended release caps patellar tracking knee brace left #1 ea 01/27/23 03/12/23 Unknown Rx metoprolol tartrate 25 mg tablet 25 mg PO BID #180 tabs 02/05/23 04/24/23 04/24/23 Rx bupropion HCl 75 mg tablet See Rx Instructions .Route 03/04/23 04/24/23 04/24/23 Rx .COMPLEX #30 tabs escitalopram oxalate 20 mg tablet 20 mg PO DAILY 30 days #30 tabs 03/04/23 04/24/23 04/24/23 Rx (Lexapro) lisinopril 20 1 tab PO DAILY #90 tabs 03/09/23 04/24/23 04/23/23 Rx mg-hydrochlorothiazide 25 mg tablet Allergies Allergy/AdvReac Type Severity Reaction Status Date / Time No Known Allergies Allergy Verified 04/24/23 10:59 PFSH Acute 2 PFSH: Medical History History of [place] (myocardial infarction) HTN (hypertension) Hyperlipidemia Primary osteoarthritis, left shoulder left total shoulder arthroplasty DOS: 02/07/[address] Morfin TERESA (generalized anxiety disorder) MDD (major depressive disorder) Psychiatric care Surgical History S/P total knee arthroplasty S/P knee replacement History of ankle surgery Status post reverse total arthroplasty of left shoulder Family History Mother Heart disease Father Heart disease Grandmother Diabetes Hypertension Cancer Social History Smoking and tobacco/nicotine status: never used tobacco/nicotine Alcohol intake: never Vitals/I&O/Wt Last Vital Signs Temp 98.1 F 04/24/23 16:28 Pulse 70 04/24/23 16:48 Resp 16 04/24/23 16:48 BP 135/77 04/24/23 16:48 Pulse Ox 92 04/24/23 16:48 O2 Del Method Nasal Cannula 04/24/23 16:48 O2 Flow Rate 6 04/24/23 16:03 04/24/23 04/24/23 04/24/23 06:59 14:59 22:59 Intake Total 1650 / 1650 300 / 1950 Output Total Balance 1650 / 1650 290 / 1940 Weight last 48 hrs Weight 112.037 kg Physical Exam 2 Const: COMMON NORMALS: no acute distress and patient oriented x3 HENMT: COMMON NORMALS: normocephalic HEAD & SCALP: normocephalic Resp: COMMON NORMALS: normal respiratory effort, No retractions, No use of accessory muscles and clear to auscultation bilaterally AUSCULTATION: clear to auscultation bilaterally Cardio: COMMON NORMALS: regular rate, regular rhythm, S1 normal heart sound present and S2 normal heart sound present RATE: regular rate RHYTHM: r egular rhythm HEART SOUNDS: S1 normal heart sound present and S2 normal heart sound present GI: COMMON NORMALS: Normal to inspection, nondistended, normoactive bowel sounds present and non-tender Extremity: COMMON NORMALS: no calf tenderness and no pedal edema NARRATIVE EXTREMITY EXAM: Left lower extremity wrapped Neuro: COMMON NORMALS: patient oriented x3 Psych: COMMON NORMALS: mental status grossly normal Data 04/24/23 11:21 04/24/23 11:21 A&P Assessment and plan (1) TERESA (generalized anxiety disorder): (2) HTN (hypertension): Qualifiers: Hypertension type: primary hypertension Qualified Code(s): I10 - Essential (primary) hypertension (3) Hyperlipidemia: Qualifiers: Hyperlipidemia type: mixed hyperlipidemia Qualified Code(s): E78.2 - Mixed hyperlipidemia (4) Patellar instability of left knee: Plan s/p Left knee patella joint resurfacing with patella poly button Left knee medial retinacular repair Left knee extensive synovectomy Left total joint arthroplasty poly exchange Plan -Currently on IV antibiotics, -Knee joint fluid has been cultured continue to follow cultures, monitor for fevers -Eliquis for DVT prophylaxis -Pain control as per orthopedic team Hypertension, I resumed amlodipine, metoprolol, lisinopril hydrochlorothiazide, Imdur Hyperlipidemia, resume statin Anxiety depression renew Lexapro, Wellbutrin History of [place], last stress test in October showed MPRESSIONS 1. Myocardial perfusion imaging revealing small area of minimal to moderately decreased persistent tracer uptake in the mid and apical inferior wall region suggesting myocardial scarring versus attenuation artifact. 2. Normal LV ejection fraction of 61%. 3. LV wall motion analysis revealing no gross wall motion abnormalities. 4. Normal LV volume Low probability for coronary ischemia, based on the above findings No similar previous studies are available for comparison Obstructive sleep apnea, start CPAP tonight Consult Attestations 2 Medical Necessity Statement: patient requires hospitalization for knee surgery requiring IV antibiotics culture of fluid, management hypertension hyperlipidemia anxiety, sleep apnea and High MDM includes number and complexity of problems actively addressed during encounter, amount and/or complexity of data reviewed/ordered and described risk of complication, morbidity or mortality of management as documented Diagnoses TERESA (generalized anxiety disorder) F41.1 Primary hypertension I10 Hypertension type: primary hypertension Mixed hyperlipidemia E78.2 Hyperlipidemia type: mixed hyperlipidemia Patellar instability of left knee M25.362
[2023-04-24] MEDS: iron polysaccharide complex 150 mg Capsule PO (17:31)
[2023-04-24] MEDS: oxyCODONE 5 mg IR Tab/Cap PO ×2 (17:31→23:08)
[2023-04-24] MEDS: docusate sodium 100 mg Capsule PO (17:31)
[2023-04-24] MEDS: isosorbide mononitrate ER 60 mg Tablet PO (17:31)
[2023-04-24] MEDS: calcium carb-vit d 600mg/400unit 1 Tablet 1 EACH PO (17:31)
[2023-04-24] MEDS: mupirocin oint 22 gm 1 APPLIC NASAL (17:32)
[2023-04-24] MEDS: metoprolol tartrate 25 mg Tablet PO (17:32)
[2023-04-24] MEDS: chlorhexidine gluconate 0.12% Btl 473 mL 30 ML MUCOUS MEM ×2 (17:32→20:20)
[2023-04-24 17:46] LABS: Chol HDL Ratio 3.57 mg/dL (1.0-5.00); Cholesterol 168 mg/dL (0-200); HDL Cholesterol 47 mg/dL (60-100); LDL Cholesterol Calculated 90 mg/dL (50-129); LDL HDL Ratio 1.91 RATIO (0.00-3.22); Triglycerides 153 mg/dL (0-150)
[2023-04-24 17:48] LABS: Estmated Average Glucose 103; Hemoglobin A1C 5.2 % (4.0-6.0)
[2023-04-24] MEDS: tranexamic acid 1,000 MG/100 ML PREMIX 600 MG IV (17:49)
[2023-04-24] MEDS: lactated ringers 1,000 ML 100 ML IV (17:49)
--- NOTE | 2023-04-24 17:57 | ANE.PACU2 ---
Inpatient post-anesthesia follow up: Airway intact: Yes Vital signs: Temperature 98.1 F Pulse Rate 78 Respiratory Rate 16 Blood Pressure 134/80 Pulse Oximetry 96 Oxygen Delivery Me thod Nasal Cannula Oxygen Flow Rate 2 Fraction of Inspir ed Oxygen Hydration adequate: Yes Nausea and vomiting: No Pain level: 3 Mental status: Baseline
[2023-04-24] MEDS: ketorolac 30 mg/mL INJ 15 MG IVP (20:14)
[2023-04-24] MEDS: atorvastatin 40 mg Tablet PO (20:14)
[2023-04-24] MEDS: HYDROmorphone 1 mg/mL INJ 1 mL 0.5 MG IVP (21:21)
[2023-04-25] MEDS: acetaminophen 1,000 MG/100 ML PIGGYBACK 400 MG IV ×2 (00:26→08:32)
[2023-04-25 03:11] LABS: Basophils % 0.1 %; Eosinophils % 0.1 %; Hematocrit 42.3 % (37-53); Lymphocytes # 0.6 10^3/uL (0.8-4.8); Lymphocytes % 7.1 %; Mean Corpuscular HGB Conc 32.4 g/dL (30-55); Mean Corpuscular Hemoglobin 29.7 pg (27-33); Mean Corpuscular Volume 91.8 fl (82-101); Monocytes # 0.2 10^3/uL (0.2-0.9); Monocytes % 2.3 %; Neutrophils # 8.09 10^3/uL (1.8-7.7); Nucleated Red Blood Cells % 0 %; Platelet Count 213 10^3/cmm (157-399); Red Blood Count 4.61 10^6/uL (3.85-5.65); Red Cell Distribution Width 12.1 % (12.1-15.1)
[2023-04-25 03:41] LABS: Anion Gap 14.5 (5-19); Blood Urea Nitrogen 14 mg/dL (6-20); Calcium 8.7 mg/dL (8.5-10.5); Carbon Dioxide 26 mmol/L (22-29); Chloride 102 mmol/L (98-107); Creatinine Clr Calc Pharmacy 96.5867; Glomerular Filtration Rate 76.5 mL/min (90-130); Glucose 157 mg/dL (65-115); Osmolality Calculated 290 mOsm/kg (285-295); Potassium 4.5 mmol/L (3.5-5.1); Sodium 138 mmol/L (136-145)
[2023-04-25] MEDS: ceFAZolin 2,000 MG in sodium chloride 0.9% (plus) 50 ML 100 MG IV (04:17)
[2023-04-25 04:18] VITALS: BP 137/73; PULSE 68; RESP 18; TEMP 36.8; O2SAT 96
[2023-04-25 06:14] VITALS: PULSE 68
[2023-04-25] MEDS: lactated ringers 1,000 ML 100 ML IV (06:39)
[2023-04-25 06:42] VITALS: RESP 17
[2023-04-25] MEDS: oxyCODONE 5 mg IR Tab/Cap PO (06:42)
[2023-04-25 08:00] VITALS: BP 131/81; PULSE 69; RESP 17; TEMP 36.8; O2SAT 95
[2023-04-25] MEDS: iron polysaccharide complex 150 mg Capsule PO (08:31)
[2023-04-25] MEDS: calcium carb-vit d 600mg/400unit 1 Tablet 1 EACH PO (08:31)
[2023-04-25] MEDS: isosorbide mononitrate ER 60 mg Tablet PO (08:31)
[2023-04-25] MEDS: escitalopram 10 mg Tablet 20 MG PO (08:31)
[2023-04-25] MEDS: metoprolol tartrate 25 mg Tablet PO (08:32)
[2023-04-25] MEDS: multivitamin therapeutic Tablet 1 TAB PO (08:32)
[2023-04-25] MEDS: apixaban 5 mg Tablet 2.5 MG PO (08:32)
[2023-04-25] MEDS: docusate sodium 100 mg Capsule PO (08:32)
[2023-04-25] MEDS: amlodipine 5 mg Tablet 10 MG PO (08:32)
[2023-04-25] MEDS: hydroCHLOROthiazide 25 mg Tablet PO (08:32)
[2023-04-25] MEDS: lisinopril 20 mg Tablet PO (08:32)
[2023-04-25] MEDS: chlorhexidine gluconate 0.12% Btl 473 mL 30 ML MUCOUS MEM (08:33)
[2023-04-25] MEDS: mupirocin oint 22 gm 1 APPLIC NASAL (08:33)
--- NOTE | 2023-04-25 10:12 | P.PN_ITS ---
<Statement entered by Luc Valencia DO - 04/25/23 10:36> Patient seen and examined agree with PAs assessment and plan. Discharge today. Understands importance of his postoperative protocol. He did undergo an extensive synovectomy as well as poly exchange as well as patellar resurfacing and medial retinacular repair. He had a small joint effusion the fluid was yellow clear synovial type fluid this was cultured per standard/prophylactically despite there is no intraoperative findings at all concerning for infection this prosthesis was ingrown to the bone and no sign of any necrotic tissue. He underwent procedure without any issues or complications did well in the postoperative course given this is a reopening of an incision of a previous total joint arthroplasty we will place him on prophylactic postoperative antibiotics p.o. upon discharge. Patient understands and agrees with current plan. All questions answered. Will see him in 2 weeks postoperatively. Luc Valencia DO Subjective 2 Subjective: Patient is a 57-year-old male who is 1 day postop left knee patellar resurfacing and medial retinaculum repair. No acute events overnight. Patient has been able to keep food and fluids down. He has gotten up with physical therapy and has been ambulating with a walker. Pain is controlled. Denies any fevers. Vitals/I&O/Wt Last Vital Signs Temp 98.3 F 04/25/23 08:00 Pulse 69 04/25/23 08:00 Resp 17 04/25/23 08:00 BP 131/81 04/25/23 08:00 Pulse Ox 95 04/25/23 08:00 O2 Del Method Room Air 04/25/23 04:18 O2 Flow Rate 2 04/24/23 19:36 04/24/23 04/25/23 04/25/23 22:59 06:59 14:59 Intake Total 550 / 2200 5150 / 7350 Output Total 2325 / 2335 Balance 540 / 2190 2825 / 5015 Weight last 48 hrs Weight 258 lb 4 oz Weight 247 lb Weight 247 lb Physical Exam 2 Narrative: Patient was sitting up in recliner comfortably and Appeared in no distress. Const: COMMON NORMALS: no acute distress and alert Resp: COMMON NORMALS: normal respiratory effort and No retractions Cardio: COMMON NORMALS: Peripheral pulses 2+ throughout PERIPHERAL PULSES: Peripheral pulses 2+ throughout Extremity: NARRATIVE EXTREMITY EXAM: Left lower extremity-Ross wrap and bandage is dry and in place. Patient is wearing knee immobilizer locked in extension. Patient able to perform dorsiflexion and plantarflexion of foot. Unable to perform straight leg raise due to pain and weight of knee immobilizer. Pedal pulse 2+ and sensation to foot intact.. Toes are warm well-perfused with normal cap refill under 2 seconds. Patient was able to get up from chair on his own weight-bear and ambulate with walker. Neuro: SENSORIUM/ORIENTATION: Yes alert Skin: GENERAL SKIN EXAM: dry skin Data 04/25/23 02:20 04/25/23 02:20 A&P Assessment and plan (1) Patellar instability of left knee: Plan Plan: -Imaging and Labs reviewed -Hospitalist on board for medical management. -DVT prophylaxis- elquis 2.5 mg BID -Keep Mahesh knee brace on and locked in extension. -Weight-bear as tolerated on Left leg -Keep surgical dressing on -Pain control -PT Pt is doing well 1 day postop from Left Knee Patella resurfacing and medial retinaculum repair. Pt is cleared for discharge home today. Attestations 2 Medical Necessity Statement*: ongoing care for Left knee patella resurfacing and medial retinaculum repair Coding Level of Care Code Acute Code for g Fwd Diagnoses Patellar instability of left knee M25.362
--- NOTE | 2023-04-25 10:28 | P.DS_ITS ---
Discharge Providers Date of Admission: 04/24/23 15:02 Date of Discharge: April 25, 2023 Attending Provider at Admission: Luc Valencia DO Attending Provider at Discharge: Luc Valencia DO Consults: Dr. Gamino?hospitalist Primary Care Provider: BLANCO Ojeda Diagnoses at Discharge Discharge Diagnosis (1) Patellar instability of left knee: Status: Acute Reason for Visit Reason for Visit: S83.185.A Brief History: Left knee patellar resurfacing, and medial retinaculum repair Hospital Course Hospital Course Patient presented to the preoperative holding area with plan for left knee patellar resurfacing and medial retinacular repair for patellar instability. After patient has been worked up in the outpatient setting for failed conservative treatment of patellar instability status post knee Dislocation in the postoperative course of a left total knee arthroplasty. Once cleared by anesthesia for surgery patient subsequently was taken back to the operative suite underwent anesthesia per anesthesia department and then subsequently underwent a left knee patellar resurfacing and medial retinacular repair. Procedure was performed without any complications patient was taken to PACU in stable condition patient recovered well in PACU and then was admitted to the floor postoperatively internal medicine was consulted and on board for medical management and assistance with care. Patient received appropriate PT/OT, postoperative antibiotics, postoperative TXA, pain control, postoperative DVT prophylaxis. Elevation and ice. Patient knee brace locked in full extension with strict no range of motion to protect repair. Allowed weightbearing as tolerated to the operative extremity with knee brace locked in extension. Dressing was changed as needed, eugene dressing on in place with good seal, labs were monitored daily. Patient recovered well postoperatively and worked well and progressed well with therapy. It was determined on postoperative day 1 the patient was stable for discharge from an orthopedic standpoint and medicine. Patient was comfortable with discharge and plan was discharged home. Patient received appropriate discharge instructions as well as pain medication and DVT prophylaxis postoperatively. Given appropriate instructions for dressing management. Patient will follow-up with Dr. Valencia/orthopedics in the office in 2 weeks. All questions answered. Understand if there is any issues questions or concerns and contact the office. Physical Exam Narrative: Patient was sitting up in recliner comfortably and Appeared in no distress. Const: COMMON NORMALS: no acute distress and alert Resp: COMMON NORMALS: normal respiratory effort and No retractions Cardio: COMMON NORMALS: Peripheral pulses 2+ throughout PERIPHERAL PULSES: Peripheral pulses 2+ throughout Extremity: NARRATIVE EXTREMITY EXAM: Left lower extremity-Ross wrap and bandage is dry and in place. Patient is wearing knee immobilizer locked in extension. Patient able to perform dorsiflexion and plantarflexion of foot. Unable to perform straight leg raise due to pain and weight of knee immobilizer. Pedal pulse 2+ and sensation to foot intact.. Toes are warm well-perfused with normal cap refill under 2 seconds. Patient was able to get up from chair on his own weight-bear and ambulate with walker. Neuro: SENSORIUM/ORIENTATION: Yes alert Skin: GENERAL SKIN EXAM: dry skin Discharge Data Studies Completed and Pending Pending at discharge Category Date Time Status XR knee LT 1-2V 15856 Routine Exams 04/24/23 15:33 Taken Anaerobic Culture Routine Lab 04/24/23 13:42 Received Anaerobic Culture Routine Lab 04/24/23 13:42 Received Basic Metabolic Panel AM LABS Lab 04/26/23 04:00 Ordered Basic Metabolic Panel AM LABS Lab 04/27/23 04:00 Ordered Complete Blood Count w/Auto AM LABS Lab 04/26/23 04:00 Ordered Complete Blood Count w/Auto AM LABS Lab 04/27/23 04:00 Ordered Wound Culture and Gram Stain Routine Lab 04/24/23 13:42 Received Wound Culture and Gram Stain Routine Lab 04/24/23 13:42 Received Laboratory Results WBC 9.00 10^3/uL (3.29-11.43) 04/25/23 02:20 RBC 4.61 10^6/uL (3.85-5.65) 04/25/23 02:20 Hgb 13.70 g/dL (11.27-16.99) 04/25/23 02:20 Hct 42.3 % (37-53) 04/25/23 02:20 MCV 91.8 fl (82-101) 04/25/23 02:20 MCH 29.7 pg (27-33) 04/25/23 02:20 MCHC 32.4 g/dL (30-55) 04/25/23 02:20 RDW 12.1 % (12.1-15.1) 04/25/23 02:20 Plt Count 213 10^3/cmm (157-399) 04/25/23 02:20 MPV 11.0 fL (7.4-10.4) H 04/25/23 02:20 Neut % (Auto) 90.0 % 04/25/23 02:20 Lymph % (Auto) 7.1 % 04/25/23 02:20 [place] % (Auto) 2.3 % 04/25/23 02:20 Eos % (Auto) 0.1 % 04/25/23 02:20 Baso % (Auto) 0.1 % 04/25/23 02:20 Neut # (Auto) 8.09 10^3/uL (1.8-7.7) H 04/25/23 02:20 Lymph # (Auto) 0.6 10^3/uL (0.8-4.8) L 04/25/23 02:20 [place] # (Auto) 0.2 10^3/uL (0.2-0.9) 04/25/23 02:20 Eos # (Auto) 0.0 10^3/uL (0.0-0.8) 04/25/23 02:20 Baso # (Auto) 0.0 10^3/uL (0.0-0.1) 04/25/23 02:20 Nucleated RBC % (auto) 0 % 04/25/23 02:20 Nucleated RBCs # 0.0 /100WBC 04/25/23 02:20 Sodium 138 mmol/L (136-145) 04/25/23 02:20 Potassium 4.5 mmol/L (3.5-5.1) 04/25/23 02:20 Chloride 102 mmol/L (98-107) 04/25/23 02:20 Carbon Dioxide 26 mmol/L (22-29) 04/25/23 02:20 Anion Gap 14.5 (5-19) 04/25/23 02:20 BUN 14 mg/dL (6-20) 04/25/23 02:20 Creatinine 1.0 mg/dL (0.7-1.2) 04/25/23 02:20 GFR Calculation 76.5 mL/min (90-130) L 04/25/23 02:20 Glucose 157 mg/dL (65-115) H 04/25/23 02:20 Estimat Average Glucose 103 04/24/23 11:21 Hemoglobin A1c 5.2 % (4.0-6.0) 04/24/23 11:21 Calculated Osmolality 290 mOsm/kg (285-295) 04/25/23 02:20 Calcium 8.7 mg/dL (8.5-10.5) 04/25/23 02:20 Triglycerides 153 mg/dL (0-150) H 04/24/23 11:21 Cholesterol 168 mg/dL (0-200) 04/24/23 11:21 LDL Cholesterol, Calc 90 mg/dL (50-129) 04/24/23 11:21 HDL Cholesterol 47 mg/dL (60-100) L 04/24/23 11:21 LDL/HDL Ratio 1.91 RATIO (0.00-3.22) 04/24/23 11:21 Cholesterol/HDL Ratio 3.57 mg/dL (1.0-5.00) 04/24/23 11:21 Blood Type O Positive 04/24/23 11:53 Rho(D) Type Rh positive 04/24/23 11:53 Antibody Screen Negative 04/24/23 11:53 Imaging Xray Ortho: Radiologist's impression: X-rays demonstrate stable total knee arthroplasty patella appears to be in appropriate position as well as resurfaced no evidence of periprosthetic fracture dislocation Vitals Last Vital Signs Temp 98.3 F 04/25/23 08:00 Pulse 69 04/25/23 08:00 Resp 17 04/25/23 08:00 BP 131/81 04/25/23 08:00 Pulse Ox 95 04/25/23 08:00 O2 Del Method Room Air 04/25/23 04:18 O2 Flow Rate 2 04/24/23 19:36 Discharge Plan Discharge Patient Disposition: Home Condition: Stable Prescriptions: New oxycodone 5 mg tablet 5 mg PO Q6H PRN (Reason: pain postop) 7 Days Qty: 28 0RF Eliquis 2.5 mg tablet 2.5 mg PO BID 14 Days Qty: 28 0RF cephalexin 500 mg capsule 500 mg PO Q6H 10 Days Qty: 40 0RF ondansetron 4 mg tablet,disintegrating 4 mg PO Q8H PRN (Reason: nausea and vomiting) 3 Days Qty: 9 0RF Continued metoprolol tartrate 25 mg tablet 25 mg PO BID Qty: 180 3RF amlodipine 5 mg tablet 10 mg PO DAILY Qty: 90 1RF rosuvastatin 20 mg tablet 20 mg PO .HS Qty: 90 1RF bupropion HCl 75 mg tablet See Rx Instructions .ROUTE .COMPLEX Qty: 30 4RF Rx Instructions: Take 1/2 tablet p.o. every a.m. x 3 to 4 days then take whole tab every a.m. if tolerated. Lexapro 20 mg tablet 20 mg PO DAILY 30 Days Qty: 30 4RF isosorbide mononitrate 60 mg tablet extended release 24 hr 60 mg PO BID Qty: 180 1RF hydrochlorothiazide 25 mg tablet 25 mg PO DAILY PRN (Reason: swelling) Qty: 30 6RF potassium chloride 8 mEq capsule, extended release 8 meq PO DAILY PRN (Reason: with HCTZ) Qty: 30 6RF nitroglycerin 0.4 mg tablet, sublingual 0.4 mg sublingual Q5M PRN (Reason: chest pain) Qty: 25 3RF Rx Instructions: do not exceed 3 doses per episode lisinopril-hydrochlorothiazide 20-25 mg tablet 1 tab PO DAILY Qty: 90 1RF cetirizine [Zyrtec] 10 mg Tablet 10 mg PO DAILY famotidine 20 mg Tablet 20 mg PO DAILY diphenhydramine-acetaminophen [Tylenol PM Extra Strength] 25-500 mg Tablet 1 tab PO BEDTIME diclofenac sodium 1 % gel 2 g TOPICAL QID PRN (Reason: rasg) Held meloxicam 15 mg tablet 15 mg PO DAILY Hold Instructions: Resume on 05/08/23. No Action (DME) patellar tracking knee brace left See Rx Instructions .Route .MEDSUPPLY Qty: 1 0RF Rx Instructions: As directed Discharge Orders: Discharge Order (Routine); Ordered 04/25/23 Ordered By: Luc Valencia Referrals: Luc Valencia, [Physician] - Discharge Diet: Regular Discharge Activity: Limit activity as instructed Patient Instructions: Opioid Safety Activity Restrictions/Additional Instructions: Orthopedic instructions: Keep dressing on and dry. After 3 days you can remove some of the dressing and shower. disconnect battery pack when showering. Eugene dressing will stay on until follow up appt in 2 weeks. The battery pack for the dressing will at 5-7 days. Battery pack can be removed and discarded once batteries . Strict NO ROM of knee Wear Knee mariza brace locked in extension with weightbearing and ambulation Utilize crutches as needed Ice and elevate as needed for pain and swelling Take pain medication as prescribed Take antinausea medication as needed Take eliquis 2.5 mg BID for blood clot prevention Take antibiotic as prescribed May supplement for pain with ibuprofen [id number] as needed No baths or soaks Follow-up in the orthopedic office in 2 weeks Contact the office for any questions or concerns Discharge Attestations Time Spent in Discharge Care*: greater than 30 min Quality Metrics Clinical Quality Measures [ No reported AMI, CVA or VTE this stay] Coding Level of Care Code Acute Code for Chg Fwd Diagnoses Patellar instability of left knee M25.362 Time Spent (min) 35
[2023-04-25 11:47] VITALS: BP 131/81; PULSE 69; RESP 17; TEMP 36.8; O2SAT 95
== END 2023-04-25 11:48 | disposition home or self-care (01) ==
LOC: MEDSURG 15:03
PROVIDERS: Family Medicine; Physician Assistant; Admitting Provider Student in an Organized Health Care Education/Training Program; PCP Nurse Practitioner Family; Visit Provider Student in an Organized Health Care Education/Training Program
PROC: (CPT 27447; principal; 2023-04-24 12:30)
PROC: (CPT 27380; 2023-04-24 12:30)
DX: M23.52 Chronic instability of knee, left knee (principal); Z96.652 Presence of left artificial knee joint; I25.2 Old myocardial infarction; I10 Essential (primary) hypertension; E78.5 Hyperlipidemia, unspecified; F41.1 Generalized anxiety disorder; Z87.891 Personal history of nicotine dependence
CPT/HCPCS: 27380; 27438; 27486; 36415; 73560; 80048; 80061; 83036; 85025; 86850; 86900; 87070; 87075; 87205; 97161; 97165; 97530; C1776; G0378; J0131; J0171; J0690; J1100; J1170; J1885; J2405; J2704; J2795; J3010; J3370; J3490; J7030; J7120

== ENCOUNTER → 2023-05-12 14:00 | Outpatient (BNVA) | payer BC, MEDICAID, SELFPAY | PROVIDERS: PCP Nurse Practitioner Family; Visit Provider Student in an Organized Health Care Education/Training Program | DX: Z96.653 Presence of artificial knee joint, bilateral; M25.362 Other instability, left knee | CPT/HCPCS: 73560; 73565 ==

== ENCOUNTER → 2023-06-16 14:43 | Outpatient (BNVA) | payer BC, MEDICAID, SELFPAY | PROVIDERS: PCP Nurse Practitioner Family; Visit Provider Physician Assistant | DX: Z96.653 Presence of artificial knee joint, bilateral; M25.362 Other instability, left knee | CPT/HCPCS: 73560; 73565 ==

== ENCOUNTER → 2023-07-30 13:33 | Outpatient (BNVA) | payer BC, MEDICAID, SELFPAY | PROVIDERS: PCP Nurse Practitioner Family; Visit Provider Physician Assistant | DX: Z96.653 Presence of artificial knee joint, bilateral (principal); M25.362 Other instability, left knee | CPT/HCPCS: 73560; 73565 ==

== ENCOUNTER → 2023-12-01 13:56 | Outpatient (BNVA) | payer BC, SELFPAY | PROVIDERS: PCP Nurse Practitioner Family; Visit Provider Student in an Organized Health Care Education/Training Program | DX: Z96.652 Presence of left artificial knee joint (principal); G56.21 Lesion of ulnar nerve, right upper limb; G56.01 Carpal tunnel syndrome, right upper limb | CPT/HCPCS: 73560; 73565 ==

== ENCOUNTER 2023-12-31 11:21 | Day surgery (SDC) | payer BC, MEDICAID, SELFPAY ==
[2023-12-31] VITALS (11 sets, daily range): BP systolic 132–186; BP diastolic 81–102; PULSE 54–63; RESP 16–18; TEMP 36.2–36.3; O2SAT 91–99; BMI 36.5
[2023-12-31] MEDS: sodium chloride 0.9% 1,000 ML 30 ML IV (11:48)
[2023-12-31] MEDS: acetaminophen 1,000 MG/100 ML PIGGYBACK 400 MG IV (11:49)
[2023-12-31] MEDS: ketorolac 30 mg/mL INJ IVP (12:02)
[2023-12-31] MEDS: scopolamine 1.5 Patch 1 PATCH TRANSDERMA (12:02)
--- NOTE | 2023-12-31 13:01 | ANES.PREANE2 ---
Pre-Anesthetic Assessment Height/Weight: Height 1.73 m Weight 108.862 kg Temp Pulse Resp BP Pulse Ox O2 Del Method 97.2 F L 60 18 132/81 96 Room Air 12/31/23 11:42 12/31/23 11:42 12/31/23 11:42 12/31/23 11:42 12/31/23 11:42 12/31/23 11:42 Operation Date: 12/31/23 14:30 Proposed Procedures p Carpal Tunnel Release(Right) - Luc Annie, DO s Cubital Tunnel Release(Right) - Luc Glenn, DO s Ulnar Nerve Transposition(Right) - Luc Annie, DO Familial anesthetic complications: NOne Was Beta Alyssa taken within 24 hours: N/A Was Clonidine taken within 24 hours: N/A Last intake: Intake Last Liquid Date 12/30/23 Last Liquid Time 21:00 Last Solid Date 12/30/23 Last Solid Time 21:00 Social No alcohol and No tobacco Exam alert, oriented x 3, clear to auscultation bilaterally and regular rate & rhythm Airway Mallampati: Class IV Dentition: full CV/HEM Hypertension and Myocardial Infarction GI Gastroesophageal Reflux Disease Metabolic Morbid Obesity Anesthetic Plan ASA status: 3 Anesthesia: General and Regional (specify below) Risk of > 500 ml blood loss (7ml/kg in children): No Medications/Allergies Home Medications Medication Instructions Recorded Confirmed Last Taken Type cetirizine 10 mg tablet (Zyrtec) 10 mg PO DAILY 10/07/21 12/30/23 12/30/23 History meloxicam 15 mg tablet 15 mg PO DAILY 11/18/21 12/30/23 12/30/23 History famotidine 20 mg tablet 20 mg PO DAILY 04/11/22 12/30/23 12/31/23 07:00 History amlodipine 5 mg tablet 10 mg (2 x 5 mg) PO DAILY #90 tabs 07/10/22 12/30/23 12/31/23 07:30 Rx diphenhydramine 25 1 tab PO BEDTIME 07/25/22 12/30/23 12/29/23 History mg-acetaminophen 500 mg tablet (Tylenol PM Extra Strength) diclofenac sodium 1 % topical gel 2 g topical QID PRN Pain (Scale 10/22/22 12/30/23 Unknown History Score 1-3) nitroglycerin 0.4 mg sublingual 0.4 mg sublingual Q5M PRN chest 11/06/22 12/30/23 Unknown Rx tablet pain #25 tabs patellar tracking knee brace left #1 ea 01/27/23 12/30/23 Unknown Rx metoprolol tartrate 25 mg tablet 25 mg PO BID #180 tabs 02/05/23 12/30/23 12/31/23 07:00 Rx lisinopril 20 1 tab PO DAILY #90 tabs 09/07/23 12/30/23 12/30/23 Rx mg-hydrochlorothiazide 25 mg tablet isosorbide mononitrate 60 mg 60 mg PO BID #180 tabs 09/21/23 12/30/23 12/31/23 07:00 Rx tablet,extended release 24 hr rosuvastatin 20 mg tablet 20 mg PO .HS #90 tabs 09/21/23 12/30/23 12/29/23 Rx hydrochlorothiazide 25 mg tablet 25 mg PO DAILY PRN swelling #30 09/25/23 12/30/23 Unknown Rx tabs potassium chloride 8 mEq 8 meq PO DAILY PRN with HCTZ #30 09/25/23 12/30/23 Unknown Rx capsule,extended release caps ascorbate calcium (vitamin C) 500 500 mg PO DAILY 11/23/23 12/30/23 12/30/23 History mg tablet bupropion HCl 300 mg 24 hr tablet, 300 mg PO QAM 30 days #30 tabs 11/24/23 12/30/23 12/31/23 07:00 Rx extended release escitalopram oxalate 20 mg tablet 20 mg PO DAILY 30 days #30 tabs 11/24/23 12/30/23 12/29/23 Rx (Lexapro) hydrocodone 5 mg-acetaminophen 325 1 tab PO Q6H PRN pain 7 days #28 12/31/23 Unknown Rx mg tablet tabs Allergies Allergy/AdvReac Type Severity Reaction Status Date / Time No Known Allergies Allergy Verified 12/31/23 11:32 Current Medications Generic Name Dose Route Start Last Admin Trade Name Freq PRN Reason Stop Dose Admin Sodium Chloride 1,000 mls @ 30 mls/hr 12/31/23 11:30 12/31/23 11:48 Sodium Chloride 0.9% IV 01/01/24 11:29 30 mls/hr .Q24H TAMIKO Administration PFSH Anesthesia Medical History History of VA (myocardial infarction) HTN (hypertension) Hyperlipidemia Primary osteoarthritis, left shoulder left total shoulder arthroplasty DOS: 02/07/[address] Morfin TERESA (generalized anxiety disorder) MDD (major depressive disorder) Psychiatric care Surgical History S/P total knee arthroplasty S/P knee replacement History of ankle surgery Status post reverse total arthroplasty of left shoulder Family History Mother Heart disease Father Heart disease Grandmother Diabetes Hypertension Cancer Social History Smoking and tobacco/nicotine status: former use of tobacco/nicotine Quit status (tobacco/nicotine): has quit using Year quit tobacco: 2016 Former quit date comment: 2 ppd X 41 years Alcohol intake: never Data Anesthesia Cardiac Studies: Sestamibi Stress Test (Cardiology) 11/19/22 Cardiac Event Monitor 10/22/22
--- NOTE | 2023-12-31 13:02 | ANES.PROC ---
Anesthesia Procedures Procedure/Date: 12/31/23 Nerve Block ^: Nerve Block 1: Main Anesthesia: general anesthesia Time Out Performed: Yes Consent: requested by attending/covering physician, from patient, from other, risks and benefits reviewed and patient agrees to proceed Nerve block location: supraclavicular (R) Anesthesia monitors applied: pulse oximetry, EKG, BP cuff and oxygen Nerve block position: semi sitting Anesthetic Used: ropivicaine 0.5% (30 ml) and with decadron (4 mg) Ultrasound used to: recognize landmarks, visualize and ID brachial plexus, in supraclavicular region and visualize and ID interscalene groove Nerve Stimulator Used?: No Interscalene/Femoral BLK: 4 stimuplex 21 g needle used for position and inplane approach, visualize local anesthetic spread and no vascular puncture identified Injection: neg aspiration of heme Patient Tolerated Procedure: well Complications: none
--- NOTE | 2023-12-31 13:04 | SUR.PREOP ---
Right shoulder block done with 30ml Ropivicaine. Patient on monitors for BP, EKG, O2 NC 2L, patient tolerated procedure well. VS: 54bpm, 177/99, 98%, 18RR
--- NOTE | 2023-12-31 13:29 | W.PM.OPSUD ---
Surgery/Procedure H&P Update DATE OF PROCEDURE: December 31, 2023 DATE H&P PERFORMED: 11/30/23 H&P UPDATE INFORMATION: I have reviewed H&P completed within last 30 days, I have examined patient prior to procedure and No changes to prior documentation PREOP DIAGNOSIS: Right carpal tunnel syndrome right cubital tunnel syndrome PRIMARY INDICATION FOR PROCEDURE: Right carpal tunnel syndrome right cubital tunnel syndrome PLANNED PROCEDURE: Operation Date: 12/31/23 14:30 Proposed Procedures p Carpal Tunnel Release(Right) - DO loli Ruff Cubital Tunnel Release(Right) - DO loli Ruff Ulnar Nerve Transposition(Right) - Luc Valencia DO
[2023-12-31] MEDS: ceFAZolin 2,000 MG in sodium chloride 0.9% (plus) 50 ML 100 MG IV (13:32)
--- NOTE | 2023-12-31 14:44 | W.PM.BPON ---
Date of Procedure: 12/31/2023 Surgeon: Luc Valencia DO Frame Fixer(s): None Procedure(s) performed: Right carpal tunnel release Right cubital tunnel release (ulnar nerve decompression at the elbow) Findings of the procedure(s): Patient was found to have severe right carpal tunnel syndrome and right cubital tunnel syndrome underwent procedure as planned without issues or complications Estimated blood loss: 5 mL Specimen(s) removed: None Post-operative diagnosis: Right carpal tunnel syndrome, right cubital tunnel syndrome
--- NOTE | 2023-12-31 14:46 | PM.OP ---
Operative Report Date of procedure: December 31, 2023 Surgeon: Luc Valencia DO Procedure: Preoperative diagnosis: Right carpal tunnel syndrome, right cubital tunnel syndrome Postop Diagnosis: Same Procedure done: Right carpal tunnel release Right?cubital tunnel tunnel release (ulnar nerve decompression at elbow) Surgeon: Luc Valencia DO Estimated blood loss: 5 mL Tourniquet? 28 minutes IV fluids: 500 mL Complications: None Findings: See operative report narrative Condition: stable Disposition: same day Brief History: Patient's been seen and worked up in the outpatient setting and findings consistent with preoperative diagnosis.? Patient has right carpal tunnel syndrome as well as right?cubital tunnel syndrome which has been worked up in the outpatient setting has physical exam findings consistent with this as well as confirmatory nerve conduction/EMG nerve conduction study consistent with diagnosis.? Patient's failed conservative treatment.? As result through shared decision making agreed to proceed with? right carpal tunnel and right?cubital tunnel release with possible ulnar nerve transposition. we talked about treatment options as far as nonoperative and operative intervention.? Understands risk benefits complication alternatives surgical nonsurgical treatment options.? Understanding his risks he agrees to proceed with surgical intervention. Understanding these risks he agrees to proceed with surgery.? Consent obtained. Procedure: Patient seen evaluate in the preoperative holding area.? Consent was reviewed and signed with patient.? Correct extremity marked.? Patient seen evaluated by anesthesia department once cleared for surgery was then taken back to the operative suite placed in supine position all bony prominences well-padded patient properly secured to bed.? right upper extremity placed onto armboard.? Nonsterile tourniquet applied right upper arm.? Patient then underwent anesthesia per the anesthesia department.? Patient's right upper extremity was then prepped and draped in standard orthopedic fashion.? Final timeout performed.? Patient received appropriate preoperative antibiotics. Esmarch was used exsanguinate the right upper extremity.? Tourniquet was insufflated to 250 mmHg. I started with the carpal tunnel release first.? I made a standard open carpal tunnel release starting with the distal most extent in the palm at the Boles's cardinal line and the incision line was made in line with the fourth ray and ended just distal to the wrist crease.? Sharp scalpel incision was made through skin and subcutaneous tissue I then utilizing self retainer then began to dissect with dissection scissors split longitudinally the palmar fascia.? Next I then utilizing my instructional support assistant Tomer retractors subsequently utilizing scalpel feathered through the palmaris brevis as well as through the transverse carpal ligament distally.? Once I encountered the floor of the transverse carpal ligament and entered into the carpal tunnel I then switched to dissection scissors.? Carefully released the distal extent of the transverse carpal ligament to the palmar fat.? Care was to protect the recurrent branch and not injured this during this part of the case.? Next I then placed a [place] underneath the transverse carpal ligament proximally to protect the nerve in the carpal tunnel contents.? And then I subsequently under loupe magnification utilize my dissection scissors to release the transverse carpal ligament into the antebrachial fascia under direct visualization with care to keep my scissors with a curved ulnarly away from the palmar cutaneous branch.? The transverse carpal was then completely decompressed proximally and a [place] was then placed both distally and proximally throughout the carpal tunnel and had complete decompression of the nerve.? The nerve did appear to have hourglass shape as it went through the carpal tunnel.? With significant irritation noted around the nerve.? No masses were noted within the contents of the carpal tunnel.? This completed the carpal tunnel release and then I subsequently irrigated the wound bed and placed a wet Ray-Lacy into the incision for later closure. Next marked out the landmarks of the right elbow of the medial epicondyle and olecranon and made a curvilinear incision following the course of the ulnar nerve at the medial aspect of the elbow.? Sharp scalpel incision was made through skin and subcutaneous tissue.? Next I switched to Littler dissection scissors and spread in plane of the medial antebrachial cutaneous nerve branching which was protected throughout this part of the dissection.? Then I directly came down over the fascia and identified the 2 heads of the FCU fascia and split this right in the middle and subsequently identified my ulnar nerve distally.? This was then completely released distally under direct visualization and loupe magnification.? Once the nerve was then identified I then subsequently tracked this proximally and released this through Morton's ligament as well as complete decompression of the nerve proximally all the way past the intermuscular septum.? Just proximal to Morton ligament there was definite swelling of the ulnar nerve proximally consistent with ulnar nerve compression. the nerve was completely released and decompressed both proximally and distally.? Ulnar nerve decompression performed and completed both proximally and distally with dissection scissors.? I then took the elbow through range of motion and there was no instability or subluxating of the ulnar nerve.? This completed?cubital tunnel release.? ?Next the wound bed was thoroughly irrigated.? Tourniquet was deflated.? Hemostasis was satisfactory at the?cubital tunnel release surgery site. I then inspected the carpal tunnel incision and this was found to have satisfactory hemostasis and all this was maintained through bipolar electrocautery.? At this point time I sequentially closed?cubital tunnel site with 3-0 Vicryl suture in a running horizontal mattress nylon stitch.? ? The carpal tunnel release surgery was then closed in standard interrupted mattress fashion.? Dressing was Xeroform 4 x 4's ABD Curlex soft roll and an Ross wrap has a bulky soft dressing. Patient was then awakened from anesthesia and taken to PACU in stable condition. Disposition: Patient taken to PACU in stable condition recovering well.? Patient will receive appropriate discharge instructions as well as pain medication postoperatively.? We will follow-up with me in the office in 2 weeks.? Patient understands agrees with current plan.? All questions answered.? He understands if any questions or concerns and contact the office for follow-up appointment..
--- NOTE | 2023-12-31 16:00 | ANE.PACU2 ---
Inpatient post-anesthesia follow up: Airway intact: Yes Vital signs: Temperature 97.4 F Pulse Rate 59 Respiratory Rate 18 Blood Pressure 144/99 Pulse Oximetry 94 Oxygen Delivery Me thod Room Air Oxygen Flow Rate 8 Fraction of Inspir ed Oxygen Hydration adequate: Yes Nausea and vomiting: No Pain level: 1 Mental status: Baseline
== END 2023-12-31 16:00 | disposition home or self-care (01) ==
PROVIDERS: PCP Nurse Practitioner Family; Visit Provider Student in an Organized Health Care Education/Training Program
PROC: (CPT 64721; principal; 2023-12-31 14:20)
PROC: (CPT 64718; 2023-12-31 14:20)
DX: G56.01 Carpal tunnel syndrome, right upper limb (principal); G56.21 Lesion of ulnar nerve, right upper limb; Z87.891 Personal history of nicotine dependence; I25.2 Old myocardial infarction; I10 Essential (primary) hypertension; E78.5 Hyperlipidemia, unspecified; F41.1 Generalized anxiety disorder
CPT/HCPCS: 64718; 64721; J0131; J0690; J1100; J1885; J2405; J2704; J2795; J7030

== ENCOUNTER → 2024-11-23 14:02 | Outpatient (BNVA) | payer BC, MEDICAID, SELFPAY | PROVIDERS: PCP Nurse Practitioner Family; Visit Provider Internal Medicine Cardiovascular Disease | DX: I10 Essential (primary) hypertension (principal); R53.83 Other fatigue | CPT/HCPCS: 82533; 84443 ==